=== PATIENT | male | born 1965 | race Caucasian/White ===

== ENCOUNTER 2018-05-07 01:50 | Emergency (ER) | payer OTHER, SELFPAY ==
--- NOTE | 2018-05-07 02:02 | ED.EXTPRO ---
HPI - Extremity Problem General Chief complaint: Skin/Abscess/Foreign Body Stated complaint: left elbow/forearm swelling redness Time Seen by Provider: 05/07/18 01:59 Source: patient Mode of arrival: ambulatory Limitations: no limitations History of Present Illness HPI Narrative: 53-year-old male here for evaluation redness around his left arm. Patient states that it started within the past 24 hr. He did have some dry skin around his elbow. He states that he did his elbow in the shower and then had it again on the window of his car several days ago. He has never had a abscess in his knee drained in the past. He did have some problems managing himself so earlier however he put some ice on it and that his improve the symptoms. No fevers. He has not tried anything but the ice prior to arrival. Related Data Previous Rx's Medication Instructions Recorded ondansetron [Zofran ODT] 4 mg SUBLINGUAL Q6HP PRN #10 odt 02/25/17 tamsulosin [Flomax] 0.4 mg PO QDAY #7 cap 02/25/17 cephalexin [Keflex] 500 mg PO QID 5 Days #20 cap 05/07/18 Allergies Allergy/AdvReac Type Severity Reaction Status Date / Time egg [EGG] Allergy Unknown Unverified 05/21/17 12:08 feathers [FEATHERS] Allergy Unknown Unverified 05/21/17 12:08 Influenza Virus Vaccines Allergy Unknown Unverified 05/21/17 12:08 [INFLUENZA VIRUS VACCINES] Review of Systems Constitutional Denies fever(s) Eyes Denies itchy eyes Musculoskeletal Denies myalgias and Denies arthralgias Integumentary/Breasts Comments: Redness around the left elbow dryness over the left elbow Neurologic Denies paresthesias Hematologic/Lymphatic Denies easy bleeding and Denies easy bruising Allergic/Immunologic Denies urticaria and Denies itchy eyes REPLACED BY [facility] Medical History BPH (benign prostatic hyperplasia) (Acute) Social History Smoking Status: Never smoker Social History Smoking Status: Never smoker Exam Initial Vital Signs Initial Vital Signs: Vital Signs Temperature 98.2 F 05/07/18 02:03 Pulse Rate 75 05/07/18 02:03 Respiratory Rate 18 05/07/18 02:03 Blood Pressure 178/105 H 05/07/18 02:03 Pulse Oximetry 98 05/07/18 02:03 Const General: cooperative, healthy appearing, comfortable, well developed, well groomed and No acute distress Orientation: alert, awake and oriented x3 HENMT Head: normal to inspection and normocephalic Resp Effort & Inspection: normal respiratory effort Cardio Rate: regular rate Skin Other: Redness on the elbow. Mostly distal to the elbow. Medial aspect. No blisters. No vesicles. Neuro General: alert and awake Sensory Exam: no sensory deficits noted Extrem Other: Full range of motion of the left shoulder left elbow and left wrist Psych Appearance: grossly normal and well kempt Course Orders Ordered: Discontinued Medications Cephalexin HCl (Keflex) 500 mg PO NOW ONE Stop: 05/07/18 02:11 Last Admin: 05/07/18 02:15 Dose: 500 mg Vital Signs - 8 hr 05/07/18 02:03 05/07/18 02:22 Temperature 98.2 F Pulse Rate 75 76 Respiratory Rate 18 18 Blood Pressure 178/105 H 150/104 H Pulse Oximetry 98 98 MDM - Extremity (Nontraumatic) MDM Narrative Medical decision making narrative: Nontoxic appearing. Does have redness around the left forearm and around the left elbow. Doubt septic joint. No abscesses that knee drained. Will send home with Keflex. Patient given 1st dose here in the ER. Given prescription. He is given return precautions. He expressed understanding and agreement with plan. Discharge Plan Departure Patient Disposition: Home Clinical Impression: Cellulitis Qualifiers: Site of cellulitis: extremity Site of cellulitis of extremity: upper extremity Laterality: left Qualified Code(s): L03.114 - Cellulitis of left upper limb Discharge Date/Time: 05/07/18 02:25 Interventions: ED Discharge Assessment Last Done: 05/07/18 02:22 Instructions: DI for Cellulitis -- Adult Activity Restrictions/Additional Instructions: Take the antibiotics as directed. Contact your primary doctor for a follow-up. Return to the emergency department for any new or worsening symptoms Prescriptions: New cephalexin [Keflex] 500 mg capsule 500 mg PO QID 5 Days Qty: 20 RF: 0 No Action tamsulosin [Flomax] 0.4 MG capsule,extended release 24hr 0.4 mg PO QDAY Qty: 7 RF: 0 ondansetron [Zofran ODT] 4 MG tablet,disintegrating 4 mg Sublingual Q6HP PRNQty: 10 RF: 0 Referrals: Shahriar Kraft CNP [Primary Care Provider] -
[2018-05-07 02:03] VITALS: BP 178/105; PULSE 75; RESP 18; TEMP 36.8; O2SAT 98; BMI 31.1
[2018-05-07] MEDS: cephALEXin 250 MG CAPSULE 500 MG PO (02:15)
[2018-05-07 02:22] VITALS: BP 150/104; PULSE 76; RESP 18; O2SAT 98
== END 2018-05-07 02:25 | disposition home or self-care (01) ==
PROVIDERS: Emergency Provider Emergency Medicine; Family Provider Registered Nurse Diabetes Educator; PCP Registered Nurse Diabetes Educator
DX: L03.114 Cellulitis of left upper limb (principal)
CPT/HCPCS: 99282; 99283

== ENCOUNTER 2020-04-02 17:19 | Observation (INO) | payer OTHER, SELFPAY ==
[2020-04-02] VITALS (14 sets, daily range): BP systolic 151–185; BP diastolic 82–107; PULSE 55–72; RESP 16–32; TEMP 36.3–37.1; O2SAT 95–99; BMI 28.3
--- NOTE | 2020-04-02 17:33 | DI.CT.S_ITS ---
PROCEDURE: CT STROKE INDICATIONS: Left facial droop TECHNIQUE: Noncontrast 4.5 mm thick angled axial sections acquired from the foramen magnum to the vertex, with coronal reformats. For radiation dose reduction, the following was used: automated exposure control, adjustment of mA and/or kV according to patient size. COMPARISON: None. FINDINGS: Image quality: Excellent. CSF spaces: Basal cisterns are patent. No extra-axial fluid collections. Ventricles are normal in size and shape. Brain: No midline shift. No intracranial masses or hemorrhage. Vaz-white matter interface is normal. Skull and face: Calvarium and visualized facial bones are intact, without suspicious lesions. Sinuses: Visualized sinuses and mastoids are clear. IMPRESSION: No acute intracranial hemorrhage is seen. No acute intracranial process is seen. Note: Case discussed by telephone with Dr. Alamo at 4:47 p.m. [place] time on April 02, 2020. This study fulfills neurological imaging criteria for inclusion or exclusion of acute stroke therapies based on available published neurological imaging guidelines. Dictated by: Rusty Crocker M.D. on 04/02/2020 at 16:46 Approved by: Rusty Corcker M.D. on 04/02/2020 at 16:47
--- NOTE | 2020-04-02 17:33 | DI.CT.S_ITS ---
PROCEDURE: CT ANGIO HEAD AND NECK INDICATIONS: Left facial droop TECHNIQUE: Noncontrast images were performed earlier in the day and not repeated. After the administration of intravenous contrast, 1 mm thick sections acquired from the aortic arch through the [place]. Post-contrast 4.5 mm thick sections then re-acquired from the foramen magnum to the vertex. 3-dimensional gycrcwg-yontaooxq-ibutpcobeg (MIP) and/or volume rendering reformats were acquired of the central intracranial vasculature and neck separately. COMPARISON: [facility], CT, CT STROKE, 04/02/2020, 17:35. FINDINGS: Image quality: Excellent. BRAIN: CSF spaces: Ventricles are normal in size and shape. Basal cisterns are patent. No extra-axial fluid collections. Brain: No midline shift. No intracranial bleeds or masses. Vaz-white matter interface appears intact. Skull and face: Calvarium and facial bones appear intact, without suspicious lesions. Orbits appear normal. Sinuses: Sinuses and mastoids are clear. HEAD CT ANGIOGRAPHY: Anterior circulation: Intracranial internal carotid arteries are normal in size and flow. The flow within the paired anterior cerebral arteries is normal and symmetric. The flow within the middle cerebral arteries is normal and symmetric. The anterior communicating artery is seen. No aneurysms are seen. Posterior circulation: The right vertebral artery largely terminates in the right posterior inferior cerebellar artery. The left vertebral artery is unremarkable. There is a normal appearing basilar artery. Flow within the posterior cerebral arteries is normal and symmetric. No aneurysms are seen. NECK CT ANGIOGRAPHY: Carotid system: The great vessels demonstrate a conventional anatomy as they arise from the aortic arch. The origins of the common carotid arteries appear patent. The common carotid arteries demonstrate normal caliber and courses. The bifurcation regions are both widely patent. The internal carotid arteries demonstrate normal calibers and courses. Posterior circulation: The origins of the vertebral arteries both appear widely patent. The more superior extracranial portions of both vertebral arteries also demonstrate normal courses and calibers. The left vertebral artery is dominant to the right Soft tissues: Visualized neck soft tissues demonstrate no suspicious abnormalities. Bones: No suspicious bony lesions. Visualized cervical spine appears normally aligned. Moderate cervical spine degenerative change can be seen. IMPRESSION: No acute intracranial process is seen. Within the arteries of the neck, no hemodynamically significant stenosis can be seen. Any quantitative measurements of stenosis were performed using NASCET criteria. Dictated by: Rusty Crocker M.D. on 04/02/2020 at 17:00 Approved by: Rusty Crocker M.D. on 04/02/2020 at 17:03
[2020-04-02 17:40] LABS: Add Manual Diff / Slide Review NO; Basophils Absolute Auto 100 /uL (0-100); Eosinophils Absolute Auto 300 /uL (0-450); Eosinophils Percent Auto 3.2 % (2-4); Hematocrit 46.7 % (41-53); Hemoglobin 16.5 g/dL (13.5-17.5); Lymphocytes Absolute Auto 3200 /uL (1100-4500); Lymphocytes Percent Auto 32.7 % (25-40); Mean Corpuscular HGB Conc 35.2 % (30-36); Mean Corpuscular Hemoglobin 31.3 PG (26-34); Mean Corpuscular Volume 88.8 fL (80-100); Monocytes Absolute Auto 700 /uL (0-900); Monocytes Percent Auto 7.5 % (3-14); Neutrophils Absolute Auto 5400 /uL (1500-7000); Neutrophils Percent Auto 55.6 % (50-75); Platelet Count 189 X10^3/uL (150-400); Red Blood Cell Count 5.26 X10^6/uL (4.5-5.9); Red Cell Distribution Width 13.8 % (11.6-14.8); White Blood Cell Count 9.7 X10^3/uL (4.5-11.0)
[2020-04-02 17:45] LABS: INR 1.1 (0.9-1.3); Prothrombin Time 12.8 SECONDS (10.1-12.7)
[2020-04-02 17:48] LABS: PTT Partial Thromboplastin Tim 33 SECONDS (26.4-36.2)
[2020-04-02 17:50] LABS: Albumin 4.4 g/dL (3.5-5.0); Albumin Globulin Ratio 1.3 (1.0-2.8); Alkaline Phosphatase 80 U/L (38-126); Aspartate Aminotransferase 38 IU/L (17-59); BUN Creatinine Ratio 16.8 (6-22); Bilirubin Total 0.9 mg/dL (0.2-1.3); Blood Urea Nitrogen 21 mg/dL (9-20); Calcium 9.4 mg/dL (8.4-10.2); Carbon Dioxide 28 mmol/L (22-32); Chloride 108 mmol/L (98-107); Creatine Kinase 200 U/L (55-170); Globulin 3.5 g/dL (1.7-4.1); Glucose 111 mg/dL (70-100); HEMOLYSIS < 15 (0-50); Potassium 3.9 mmol/L (3.4-5.1); Sodium 140 mmol/L (137-145); Total Protein 7.9 g/dL (6.3-8.2)
[2020-04-02 17:51] LABS: Alanine Aminotransferase < 4 IU/L (<50)
[2020-04-02] MEDS: SODIUM CHLORIDE 0.9% 500 ML 1000 ML IV (17:52)
[2020-04-02 18:01] LABS: Troponin I < 0.012 ng/mL (0.01-0.034)
[2020-04-02 18:05] LABS: CKMB % Relative Index 0.9 % (1.5-5.0); Creatine Kinase MB 1.88 ng/mL (<2.37)
--- NOTE | 2020-04-02 18:13 | ED_ITS ---
HPI - Neuro Symptoms/Deficit <Wilson Alamo MD - Last Filed: 04/11/20 07:37> General Chief Complaint: Neuro Symptoms/Deficit Stated Complaint: Left Eye Issues, Neck Pain, Right Side Mouth Swell Time Seen by Provider: 04/02/20 17:32 Source: patient Mode of arrival: Ambulatory History of Present Illness HPI Narrative: Patient awoke Friday morning, 2 days ago with left facial droop. No limb weakness or numbness. No altered mental status. Patient states has had bouts of confusion since January with starting his new job. Patient states that job requires a lot of concentration. Patient denies any recent illness. At times he does have discomfort in the left arm but not weakness. On Anticoagulants: No Related Data Home Medications Medication Instructions Recorded Confirmed acetaminophen 1,000 mg PO Q6H PRN 04/02/20 04/02/20 ibuprofen 200 mg PO Q6H PRN 04/02/20 04/02/20 Previous Rx's Medication Instructions Recorded aspirin 81 mg PO DAILY #30 tab 04/03/20 atorvastatin 20 mg PO DAILY #30 tab 04/03/20 losartan 25 mg PO DAILY #30 tab 04/03/20 valacyclovir 1,000 mg PO TID #6 tab 04/03/20 Allergies Allergy/AdvReac Type Severity Reaction Status Date / Time egg [EGG] Allergy Unknown Anaphylaxis Verified 04/02/20 22:33 feathers [FEATHERS] Allergy Unknown Difficulty Verified 04/02/20 22:33 Breathing Influenza Virus Vaccines Allergy Unknown Anaphylaxis Verified 04/02/20 22:33 [INFLUENZA VIRUS VACCINES] Review of Systems <Wilson Alamo MD - Last Filed: 04/11/20 07:37> Review of Systems Narrative: GENERAL: Denies chills, fatigue, malaise, fever, sweats. HEENT: Denies sinus pain, ear pain, sore throat RESPIRATORY: Denies dyspnea, cough CARDIOVASCULAR: Denies chest pain, palpitations GASTROINTESTINAL: Denies nausea, vomiting, abdominal pain : Denies dysuria, frequency, hematuria MUSCULOSKELETAL: denies muscle or bony pain SKIN: Denies rash, skin lesions NEUROLOGIC: Complains of numbness and weakness of the face. No headache ROS Unobtainable: All systems reviewed & are unremarkable except as noted in HPI and below Hematologic/Lymphatic On Anticoagulants: No Patient History <Wilson Alamo MD - Last Filed: 04/11/20 07:37> Medical History Bilateral kidney stones Hyperlipidemia Hypertension Surgical History History of appendectomy History of lithotripsy History of surgery on arm Family History Father Cancer Stroke Sister Diabetes mellitus Mother Cardiovascular disease History of four vessel coronary artery bypass graft Social History household members: spouse Smoking Status: Never smoker alcohol intake: current Smoking Status: Never smoker alcohol intake frequency: holidays/special occasions only Substance Use Type: does not use Exam <Wilson Alamo MD - Last Filed: 04/11/20 07:37> Narrative Exam Narrative: GENERAL: in no distress, not toxic not dyspneic HEAD: Normocephalic. EYES: Pupils equal round No scleral icterus. No injection no discharge ENT: Mucous membranes moist. NECK: Trachea midline. CARDIOVASCULAR: Regular rate and rhythm without murmurs RESPIRATORY: Clear to auscultation. Breath sounds equal bilaterally. No wheezes, rales, or rhonchi. GASTROINTESTINAL: Abdomen soft, non-tender EXTREMITIES: No gross deformities. BACK: No flank tenderness. NEURO: AOx4. Slight slurred speech. There is a left facial droop with slight sparing of the left forehead. Strong equal order picker. Negative pronator drift. Light touch intact to right face but slightly diminished on the left, otherwise light touch intact to bilateral hands. Steady self gait in the room, no ataxia, no footdrop SKIN: Warm and dry PSYCH: Not anxious, is cooperative Initial Vital Signs Initial Vital Signs: Vital Signs Temperature 98.7 F 04/02/20 17:27 Pulse Rate 66 04/02/20 17:27 Respiratory Rate 18 04/02/20 17:27 Blood Pressure 185/101 H 04/02/20 17:27 Pulse Oximetry 99 04/02/20 17:27 <Anne-Marie Delaney DO - Last Filed: 04/02/20 21:35> Initial Vital Signs Initial Vital Signs: Vital Signs Temperature 98.7 F 04/02/20 17:27 Pulse Rate 66 04/02/20 17:27 Respiratory Rate 18 04/02/20 17:27 Blood Pressure 185/101 H 04/02/20 17:27 Pulse Oximetry 99 04/02/20 17:27 Scores <Wilson Alamo MD - Last Filed: 04/11/20 07:37> NIH Stroke Scale Level of Conciousness: Alert, keenly responsive Ask month/age: Answers both questions correctly. Open/close eyes, close hand: Performs both tasks correctly Best gaze horizontal: Normal Visual mahoney: No visual loss Facial palsy: Complete paralysis, absence of movement in the upper and lower face Left arm drift: No drift for full 10 sec Right arm drift: No drift for full 10 sec Left leg drift: No drift for full 5 sec Right leg drift: No drift for full 5 sec Limb ataxia: Absent Sensory on face/arms/legs: Normal, no sensory loss Best language: No aphasia, normal Dysarthria: Normal Extinction or inattention: No abnormality Total NIH Stroke scale score: 3 Course <Wilson Alamo MD - Last Filed: 04/11/20 07:37> Course Course Narrative: No new issues during course of stay Decision to Admit Date: 04/02/20 Decision to Admit time: 18:31 Orders Ordered: Discontinued Medications Acetaminophen (Acetaminophen 325 Mg Tablet) 650 mg PO Q4HR PRN PRN Reason: Fever/Mild Pain (1-3) Last Admin: 04/03/20 09:46 Dose: 650 mg Documented by: Admin: 04/02/20 21:14 Dose: 650 mg Documented by: LILIANA Acetaminophen (Acetaminophen Susp 650 Mg/20.3 Ml Udc) 1,000 mg PO Q8H PRN PRN Reason: Headache Artificial Tears (Mineral Oil/Petrol Ophth Oint 3.5 Gm) 1 applic EYE-LEFT BID WILMAR Last Admin: 04/03/20 00:50 Dose: Not Given Documented by: ADRIA Artificial Tears (Mineral Oil/Petrol Ophth Oint 3.5 Gm) 1 applic EYE-LEFT BEDTIME WILMAR Artificial Tears (Mineral Oil/Petrol Ophth Oint 3.5 Gm) 1 applic EYE-LEFT PRN PRN PRN Reason: Dry Eye(s) Artificial Tears (Polyvinyl Alcohol Drops) 1 drops EYE-LEFT PRN PRN PRN Reason: Dry Eye(s) Last Admin: 04/03/20 10:31 Dose: 1 drop Documented by: [email or web address] Aspirin (Aspirin 81 Mg Chew Tab) 324 mg PO NOW ONE Stop: 04/02/20 18:28 Last Admin: 04/02/20 18:38 Dose: 324 mg Documented by: JULISSA Aspirin (Aspirin Ec 81 Mg Tablet) 81 mg PO DAILY [facility] Last Admin: 04/03/20 09:33 Dose: 81 mg Documented by: [email or web address] Atorvastatin Calcium (Atorvastatin 20 Mg Tablet) 40 mg PO BEDTIME [facility] Last Admin: 04/02/20 22:34 Dose: 40 mg Documented by: LILIANA Clopidogrel Bisulfate (Clopidogrel 75 Mg Tablet) 75 mg PO NOW ONE Stop: 04/02/20 18:28 Last Admin: 04/02/20 18:38 Dose: 75 mg Documented by: JULISSA Clopidogrel Bisulfate (Clopidogrel 75 Mg Tablet) 75 mg PO DAILY [facility] Last Admin: 04/03/20 09:33 Dose: 75 mg Documented by: [email or web address] Enoxaparin Sodium (Enoxaparin 40 Mg/0.4 Ml Syringe) 40 mg SUBCUT DAILY [facility] Last Admin: 04/03/20 09:35 Dose: 40 mg Documented by: ETHN Hydralazine HCl (Hydralazine 20 Mg/Ml Vial) 10 mg IV Q6HR PRN PRN Reason: Hypertension Sodium Chloride (Normal Saline 0.9%) 500 mls @ 1,000 mls/hr IV BOLUS ONE Stop: 04/02/20 18:03 Last Infusion: 04/02/20 18:33 Dose: 0 mls/hr Documented by: Admin: 04/02/20 17:52 Dose: 1,000 mls/hr Documented by: BARRINGTON Losartan Potassium (Losartan 25 Mg Tablet) 25 mg PO NOW ONE Stop: 04/02/20 23:16 Last Admin: 04/03/20 00:48 Dose: 25 mg Documented by: ADRIA Losartan Potassium (Losartan 25 Mg Tablet) 25 mg PO DAILY [facility] Last Admin: 04/03/20 09:35 Dose: 25 mg Documented by: [email or web address] Naloxone HCl (Naloxone 0.4 Mg/Ml Vial) 0.2 mg IV Q2MIN PRN PRN Reason: Opiate Reversal Ondansetron HCl (Ondansetron 4 Mg/2 Ml Inj) 4 mg IV Q8HR PRN PRN Reason: Nausea And Vomiting Oxycodone HCl (Oxycodone 5 Mg/5 Ml Oral Solution) 5 mg PO Q4HR PRN PRN Reason: Pain, Moderate (4-6) Oxycodone HCl (Oxycodone 5 Mg/5 Ml Oral Solution) 10 mg PO Q4HR PRN PRN Reason: Pain, Moderate (4-6) Oxycodone HCl (Oxycodone Ir 5 Mg Tablet) 5 mg PO Q4HR PRN PRN Reason: Pain, Moderate (4-6) Last Admin: 04/03/20 09:46 Dose: 5 mg Documented by: Admin: 04/03/20 03:50 Dose: 5 mg Documented by: Admin: 04/02/20 22:34 Dose: 5 mg Documented by: LILIANA Oxycodone HCl (Oxycodone Ir 5 Mg Tablet) 10 mg PO Q4HR PRN PRN Reason: Pain, Severe (7-10) Prednisone (Prednisone 20 Mg Tablet) 60 mg PO DAILY [facility] Stop: 04/10/20 00:00 Last Admin: 04/03/20 10:31 Dose: 60 mg Documented by: REYNALDO Proparacaine HCl (Proparacaine 0.5% Ophth Stacy) 1 drops EYE-LEFT NOW ONE Stop: 04/02/20 21:53 Last Admin: 04/02/20 22:35 Dose: 1 drop Documented by: LILIANA Rosuvastatin Calcium (Rosuvastatin 10 Mg Tablet) 10 mg PO BEDTIME [facility] Last Admin: 04/02/20 21:12 Dose: Not Given Documented by: LILIANA Sodium Chloride (Sodium Chloride 0.9% Flush) 10 ml IV PRN PRN PRN Reason: Flush Valacyclovir HCl (Valacyclovir 500 Mg Tablet) 1,000 mg PO TID [facility] Stop: 04/10/20 09:59 Last Admin: 04/03/20 10:31 Dose: 1,000 mg Documented by: REYNALDO Reevaluation(s) Reevaluation #1: Reviewed results with patient. Understands possible stroke likely. Will need to stay for further testing and MRI Time: 18:31 Consultations Consultation #1: Spoke with Dr. Solis, [facility] stroke team. Recommends patient aspirin 324 as well as Plavix 75 mg. Patient to be admitted for MRI Time: 18:31 Consultation #2: Spoke with hospitalist dr zamorano, he will have shift stacker provider at 7:00 p.m. admit patient Time: 18:32 Additional Consultation(s): 1831 s/o dr delaney, will need to contact hospitalist for admit Vital Signs Vital signs: Vital Signs - 8 hr 04/02/20 17:27 04/02/20 17:29 04/02/20 17:30 Temperature 98.7 F Pulse Rate 66 69 66 Respiratory Rate 18 Blood Pressure 185/101 H Pulse Oximetry 99 97 98 04/02/20 17:31 04/02/20 17:56 04/02/20 18:00 Temperature Pulse Rate 66 63 65 Respiratory Rate 24 19 27 H Blood Pressure 185/101 H 168/95 H Pulse Oximetry 97 97 97 04/02/20 18:30 04/02/20 19:00 04/02/20 19:30 Temperature Pulse Rate 55 L 56 L 63 Respiratory Rate 18 18 20 Blood Pressure Pulse Oximetry 97 96 97 04/02/20 19:37 Temperature Pulse Rate 62 Respiratory Rate 32 H Blood Pressure 174/101 H Pulse Oximetry 95 <Anne-Marie Delaney, DO - Last Filed: 04/02/20 21:35> Orders Ordered: Discontinued Medications Acetaminophen (Acetaminophen 325 Mg Tablet) 650 mg PO Q4HR PRN PRN Reason: Fever/Mild Pain (1-3) Last Admin: 04/03/20 09:46 Dose: 650 mg Documented by: Admin: 04/02/20 21:14 Dose: 650 mg Documented by: LILIANA Acetaminophen (Acetaminophen Susp 650 Mg/20.3 Ml Udc) 1,000 mg PO Q8H PRN PRN Reason: Headache Artificial Tears (Mineral Oil/Petrol Ophth Oint 3.5 Gm) 1 applic EYE-LEFT BID WILAMR Last Admin: 04/03/20 00:50 Dose: Not Given Documented by: ADRIA Artificial Tears (Mineral Oil/Petrol Ophth Oint 3.5 Gm) 1 applic EYE-LEFT BEDTIME WILMAR Artificial Tears (Mineral Oil/Petrol Ophth Oint 3.5 Gm) 1 applic EYE-LEFT PRN PRN PRN Reason: Dry Eye(s) Artificial Tears (Polyvinyl Alcohol Drops) 1 drops EYE-LEFT PRN PRN PRN Reason: Dry Eye(s) Last Admin: 04/03/20 10:31 Dose: 1 drop Documented by: [email or web address] Aspirin (Aspirin 81 Mg Chew Tab) 324 mg PO NOW ONE Stop: 04/02/20 18:28 Last Admin: 04/02/20 18:38 Dose: 324 mg Documented by: JULISSA Aspirin (Aspirin Ec 81 Mg Tablet) 81 mg PO DAILY [facility] Last Admin: 04/03/20 09:33 Dose: 81 mg Documented by: [email or web address] Atorvastatin Calcium (Atorvastatin 20 Mg Tablet) 40 mg PO BEDTIME [facility] Last Admin: 04/02/20 22:34 Dose: 40 mg Documented by: LILIANA Clopidogrel Bisulfate (Clopidogrel 75 Mg Tablet) 75 mg PO NOW ONE Stop: 04/02/20 18:28 Last Admin: 04/02/20 18:38 Dose: 75 mg Documented by: JULISSA Clopidogrel Bisulfate (Clopidogrel 75 Mg Tablet) 75 mg PO DAILY [facility] Last Admin: 04/03/20 09:33 Dose: 75 mg Documented by: [email or web address] Enoxaparin Sodium (Enoxaparin 40 Mg/0.4 Ml Syringe) 40 mg SUBCUT DAILY [facility] Last Admin: 04/03/20 09:35 Dose: 40 mg Documented by: [email or web address] Hydralazine HCl (Hydralazine 20 Mg/Ml Vial) 10 mg IV Q6HR PRN PRN Reason: Hypertension Sodium Chloride (Normal Saline 0.9%) 500 mls @ 1,000 mls/hr IV BOLUS ONE Stop: 04/02/20 18:03 Last Infusion: 04/02/20 18:33 Dose: 0 mls/hr Documented by: Admin: 04/02/20 17:52 Dose: 1,000 mls/hr Documented by: BARRINGTON Losartan Potassium (Losartan 25 Mg Tablet) 25 mg PO NOW ONE Stop: 04/02/20 23:16 Last Admin: 04/03/20 00:48 Dose: 25 mg Documented by: ADRIA Losartan Potassium (Losartan 25 Mg Tablet) 25 mg PO DAILY [facility] Last Admin: 04/03/20 09:35 Dose: 25 mg Documented by: [email or web address] Naloxone HCl (Naloxone 0.4 Mg/Ml Vial) 0.2 mg IV Q2MIN PRN PRN Reason: Opiate Reversal Ondansetron HCl (Ondansetron 4 Mg/2 Ml Inj) 4 mg IV Q8HR PRN PRN Reason: Nausea And Vomiting Oxycodone HCl (Oxycodone 5 Mg/5 Ml Oral Solution) 5 mg PO Q4HR PRN PRN Reason: Pain, Moderate (4-6) Oxycodone HCl (Oxycodone 5 Mg/5 Ml Oral Solution) 10 mg PO Q4HR PRN PRN Reason: Pain, Moderate (4-6) Oxycodone HCl (Oxycodone Ir 5 Mg Tablet) 5 mg PO Q4HR PRN PRN Reason: Pain, Moderate (4-6) Last Admin: 04/03/20 09:46 Dose: 5 mg Documented by: Admin: 04/03/20 03:50 Dose: 5 mg Documented by: Admin: 04/02/20 22:34 Dose: 5 mg Documented by: LILIANA Oxycodone HCl (Oxycodone Ir 5 Mg Tablet) 10 mg PO Q4HR PRN PRN Reason: Pain, Severe (7-10) Prednisone (Prednisone 20 Mg Tablet) 60 mg PO DAILY [facility] Stop: 04/10/20 00:00 Last Admin: 04/03/20 10:31 Dose: 60 mg Documented by: REYNALDO Proparacaine HCl (Proparacaine 0.5% Ophth Stacy) 1 drops EYE-LEFT NOW ONE Stop: 04/02/20 21:53 Last Admin: 04/02/20 22:35 Dose: 1 drop Documented by: LILIANA Rosuvastatin Calcium (Rosuvastatin 10 Mg Tablet) 10 mg PO BEDTIME [facility] Last Admin: 04/02/20 21:12 Dose: Not Given Documented by: LILIANA Sodium Chloride (Sodium Chloride 0.9% Flush) 10 ml IV PRN PRN PRN Reason: Flush Valacyclovir HCl (Valacyclovir 500 Mg Tablet) 1,000 mg PO TID [facility] Stop: 04/10/20 09:59 Last Admin: 04/03/20 10:31 Dose: 1,000 mg Documented by: REYNALDO Consultations Consultation #1: Spoke with Elliott Merritt GRAINING OPERATOR accepts for observation. Vital Signs Vital signs: Vital Signs - 8 hr 04/02/20 17:27 04/02/20 17:29 04/02/20 17:30 Temperature 98.7 F Pulse Rate 66 69 66 Respiratory Rate 18 Blood Pressure 185/101 H Pulse Oximetry 99 97 98 04/02/20 17:31 04/02/20 17:56 04/02/20 18:00 Temperature Pulse Rate 66 63 65 Respiratory Rate 24 19 27 H Blood Pressure 185/101 H 168/95 H Pulse Oximetry 97 97 97 04/02/20 18:30 04/02/20 19:00 04/02/20 19:30 Temperature Pulse Rate 55 L 56 L 63 Respiratory Rate 18 18 20 Blood Pressure Pulse Oximetry 97 96 97 04/02/20 19:37 Temperature Pulse Rate 62 Respiratory Rate 32 H Blood Pressure 174/101 H Pulse Oximetry 95 MDM - Neuro Symptoms/Deficit <Wilson Alamo MD - Last Filed: 04/11/20 07:37> Differential Diagnosis Differential diagnosis: Likely cerebrovascular accident, transient cerebral ischemia and other (Graves's palsy) Lab Data Attestation: I reviewed the patient's lab results. Result diagrams: 04/02/20 17:30 04/03/20 05:19 Labs: Lab Results 04/02/20 04/02/20 04/02/20 Range/Units 17:30 17:30 17:30 WBC 9.7 (4.5-11.0) X10^3/uL RBC 5.26 (4.5-5.9) X10^6/uL Hgb 16.5 (13.5-17.5) g/dL Hct 46.7 (41-53) % MCV 88.8 (80-100) fL MCH 31.3 (26-34) PG MCHC 35.2 (30-36) % RDW 13.8 (11.6-14.8) % Plt Count 189 (150-400) X10^3/uL Neut % (Auto) 55.6 (50-75) % Lymph % (Auto) 32.7 (25-40) % [place] % (Auto) 7.5 (3-14) % Eos % (Auto) 3.2 (2-4) % Baso % (Auto) 1.0 (0-2) % Neut # (Auto) 5400 (9651-4844) /uL Lymph # (Auto) 3200 (6677-1696) /uL [place] # (Auto) 700 (0-900) /uL Eos # (Auto) 300 (0-450) /uL Baso # (Auto) 100 (0-100) /uL PT 12.8 H (10.1-12.7) SECONDS INR 1.1 (0.9-1.3) APTT 33 (26.4-36.2) SECONDS Sodium 140 (137-145) mmol/L Potassium 3.9 (3.4-5.1) mmol/L Chloride 108 H (98-107) mmol/L Carbon Dioxide 28 (22-32) mmol/L BUN 21 H (9-20) mg/dL Creatinine 1.25 (0.66-1.25) mg/dL Estimated GFR 60.0 (>60) mL/min BUN/Creatinine Ratio 16.8 (6-22) Glucose 111 H (70-100) mg/dL Calcium 9.4 (8.4-10.2) mg/dL Total Bilirubin 0.9 (0.2-1.3) mg/dL AST 38 (17-59) IU/L ALT < 4 (<50) IU/L Alkaline Phosphatase 80 (38-126) U/L Total Creatine Kinase 200 H (55-170) U/L CK-MB (CK-2) 1.88 (<2.37) ng/mL CK-MB (CK-2) Rel Index 0.9 L (1.5-5.0) % Troponin I < 0.012 (0.01-0.034) ng/mL Total Protein 7.9 (6.3-8.2) g/dL Albumin 4.4 (3.5-5.0) g/dL Globulin 3.5 (1.7-4.1) g/dL Albumin/Globulin Ratio 1.3 (1.0-2.8) U Opiates 300ng/mL cut (Negative) Ur Oxycodone Screen (Negative) Urine Methadone Screen (Negative) Ur Barbiturates Screen (Negative) U Tricyclic Antidepress (Negative) Ur Phencyclidine Scrn (Negative) Ur Amphetamines Screen (Negative) U Methamphetamines Scrn (Negative) Ur MDMA Scrn (Ecstasy) (Negative) U Benzodiazepines Scrn (Negative) Urine Cocaine Screen (Negative) U Marijuana (THC) Screen (Negative) SARS-CoV-2 (PCR) (Negative) 04/02/20 04/02/20 Range/Units 18:04 18:34 WBC (4.5-11.0) X10^3/uL RBC (4.5-5.9) X10^6/uL Hgb (13.5-17.5) g/dL Hct (41-53) % MCV (80-100) fL MCH (26-34) PG MCHC (30-36) % RDW (11.6-14.8) % Plt Count (150-400) X10^3/uL Neut % (Auto) (50-75) % Lymph % (Auto) (25-40) % [place] % (Auto) (3-14) % Eos % (Auto) (2-4) % Baso % (Auto) (0-2) % Neut # (Auto) (8999-1976) /uL Lymph # (Auto) (9986-3375) /uL [place] # (Auto) (0-900) /uL Eos # (Auto) (0-450) /uL Baso # (Auto) (0-100) /uL PT (10.1-12.7) SECONDS INR (0.9-1.3) APTT (26.4-36.2) SECONDS Sodium (137-145) mmol/L Potassium (3.4-5.1) mmol/L Chloride (98-107) mmol/L Carbon Dioxide (22-32) mmol/L BUN (9-20) mg/dL Creatinine (0.66-1.25) mg/dL Estimated GFR (>60) mL/min BUN/Creatinine Ratio (6-22) Glucose (70-100) mg/dL Calcium (8.4-10.2) mg/dL Total Bilirubin (0.2-1.3) mg/dL AST (17-59) IU/L ALT (<50) IU/L Alkaline Phosphatase (38-126) U/L Total Creatine Kinase (55-170) U/L CK-MB (CK-2) (<2.37) ng/mL CK-MB (CK-2) Rel Index (1.5-5.0) % Troponin I (0.01-0.034) ng/mL Total Protein (6.3-8.2) g/dL Albumin (3.5-5.0) g/dL Globulin (1.7-4.1) g/dL Albumin/Globulin Ratio (1.0-2.8) U Opiates 300ng/mL cut Negative (Negative) Ur Oxycodone Screen Negative (Negative) Urine Methadone Screen Negative (Negative) Ur Barbiturates Screen Negative (Negative) U Tricyclic Antidepress Negative (Negative) Ur Phencyclidine Scrn Negative (Negative) Ur Amphetamines Screen Negative (Negative) U Methamphetamines Scrn Negative (Negative) Ur MDMA Scrn (Ecstasy) Negative (Negative) U Benzodiazepines Scrn Negative (Negative) Urine Cocaine Screen Negative (Negative) U Marijuana (THC) Screen Negative (Negative) SARS-CoV-2 (PCR) Negative (Negative) Point of Care Testing Glucose POC [address] scan - head: Radiologist's Impression: [address] [id number] Scan ReportSigned Patient: Doug Hare GMR#: [id number]: 1965Acct:[id number]/Sex: 54 / MDate of Service: 04/02/20Loc: EDAccession Number: [id number] Procedure: CT Stroke Ordering Provider: Wilson Alamo MD PROCEDURE: CT STROKE INDICATIONS: Left facial droop TECHNIQUE: Noncontrast 4.5 mm thick angled axial sections acquired from the foramen magnum to the vertex, with coronal reformats. For radiation dose reduction, the following was used: automated exposure control, adjustment of mA and/or kV according to patient size. COMPARISON: None. FINDINGS: Image quality: Excellent. CSF spaces: Basal cisterns are patent. No extra-axial fluid collections. Ventricles are normal in size and shape. Brain: No midline shift. No intracranial masses or hemorrhage. Vaz-white matter interface is normal. Skull and face: Calvarium and visualized facial bones are intact, without suspicious lesions. Sinuses: Visualized sinuses and mastoids are clear. IMPRESSION: No acute intracranial hemorrhage is seen. No acute intracranial process is seen. Note: Case discussed by telephone with Dr. Alamo at 4:47 p.m. [place] time on April 02, 2020. This study fulfills neurological imaging criteria for inclusion or exclusion of acute stroke therapies based on available published neurological imaging guidelines. Dictated by: Rusty Crocker M.D. on 04/02/2020 at 16:46 Approved by: Rusty Crocker M.D. on 04/02/2020 at 16:47 CTA - brain/neck: Radiologist's Impression: [address] [id number] Scan ReportSigned Patient: Doug Hare GMR#: [id number]: 1965Acct:[id number]/Sex: 54 / MDate of Service: 04/02/20Loc: EDAccession Number: [id number] Procedure: CT angio head and neck Ordering Provider: Wilson Alamo MD PROCEDURE: CT ANGIO HEAD AND NECK INDICATIONS: Left facial droop TECHNIQUE: Noncontrast images were performed earlier in the day and not repeated. After the administration of intravenous contrast, 1 mm thick sections acquired from the aortic arch through the [place]. Post-contrast 4.5 mm thick sections then re- acquired from the foramen magnum to the vertex. 3-dimensional anmmrkh-rrfixcsbi-jeylcketbi (MIP) and/or volume rendering reformats were acquired of the central intracranial vas culature and neck separately. COMPARISON: [facility], CT, CT STROKE, 04/02/2020, 17:35. FINDINGS: Image quality: Excellent. BRAIN: CSF spaces: Ventricles are normal in size and shape. Basal cisterns are patent. No extra-axial fluid collections. Brain: No midline shift. No intracranial bleeds or masses. Vaz-white matter interface appears intact. Skull and face: Calvarium and facial bones appear intact, without suspicious lesions. Orbits appear normal. Sinuses: Sinuses and mastoids are clear. HEAD CT ANGIOGRAPHY: Anterior circulation: Intracranial internal carotid arteries are normal in size and flow. The flow within the paired anterior cerebral arteries is normal and symmetric. The flow within the middle cerebral arteries is normal and symmetric. The anterior communicating artery is seen. No aneurysms are seen. Posterior circulation: The right vertebral artery largely terminates in the right posterior inferior cerebellar artery. The left vertebral artery is unremarkable. There is a normal appearing basilar artery. Flow within the posterior cerebral arteries is normal and symmetric. No aneurysms are seen. NECK CT ANGIOGRAPHY: Carotid system: The great vessels demonstrate a conventional anatomy as they arise from the aortic arch. The origins of the common carotid arteries appear patent. The common carotid arteries demonstrate normal caliber and courses. The bifurcation regions are both widely patent. The internal carotid arteries demonstrate normal calibers and courses. Posterior circulation: The origins of the vertebral arteries both appear widely patent. The more superior extracranial portions of both vertebral arteries also demonstrate normal courses and calibers. The left vertebral artery is dominant to the right Soft tissues: Visualized neck soft tissues demonstrate no suspicious abnormalities. Bones: No suspicious bony lesions. Visualized cervical spine appears normally aligned. Moderate cervical spine degenerative change can be seen. IMPRESSION: No acute intracranial process is seen. Within the arteries of the neck, no hemodynamically significant stenosis can be seen. Any quantitative measurements of stenosis were performed using NASCET criteria. Dictated by: Rusty Crocker M.D. on 04/02/2020 at 17:00 Approved by: Rusty Crocker M.D. on 04/02/2020 at 17:03 ECG Data Attestation: I personally reviewed and interpreted this ECG as follows: Interpretation: Normal sinus rhythm rate [address] elevation or depression Stroke Core Measures Exclusion Criteria TPA in CVA: Symptom Onset >3 or 4.5 Hours <Anne-Marie Delaney DO - Last Filed: 04/02/20 21:35> Lab Data Attestation: I reviewed the patient's lab results. Labs: Lab Results 04/02/20 04/02/20 04/02/20 Range/Units 17:30 17:30 17:30 WBC 9.7 (4.5-11.0) X10^3/uL RBC 5.26 (4.5-5.9) X10^6/uL Hgb 16.5 (13.5-17.5) g/dL Hct 46.7 (41-53) % MCV 88.8 (80-100) fL MCH 31.3 (26-34) PG MCHC 35.2 (30-36) % RDW 13.8 (11.6-14.8) % Plt Count 189 (150-400) X10^3/uL Neut % (Auto) 55.6 (50-75) % Lymph % (Auto) 32.7 (25-40) % [place] % (Auto) 7.5 (3-14) % Eos % (Auto) 3.2 (2-4) % Baso % (Auto) 1.0 (0-2) % Neut # (Auto) 5400 (3519-4636) /uL Lymph # (Auto) 3200 (1397-7450) /uL [place] # (Auto) 700 (0-900) /uL Eos # (Auto) 300 (0-450) /uL Baso # (Auto) 100 (0-100) /uL PT 12.8 H (10.1-12.7) SECONDS INR 1.1 (0.9-1.3) APTT 33 (26.4-36.2) SECONDS Sodium 140 (137-145) mmol/L Potassium 3.9 (3.4-5.1) mmol/L Chloride 108 H (98-107) mmol/L Carbon Dioxide 28 (22-32) mmol/L BUN 21 H (9-20) mg/dL Creatinine 1.25 (0.66-1.25) mg/dL Estimated GFR 60.0 (>60) mL/min BUN/Creatinine Ratio 16.8 (6-22) Glucose 111 H (70-100) mg/dL Calcium 9.4 (8.4-10.2) mg/dL Total Bilirubin 0.9 (0.2-1.3) mg/dL AST 38 (17-59) IU/L ALT < 4 (<50) IU/L Alkaline Phosphatase 80 (38-126) U/L Total Creatine Kinase 200 H (55-170) U/L CK-MB (CK-2) 1.88 (<2.37) ng/mL CK-MB (CK-2) Rel Index 0.9 L (1.5-5.0) % Troponin I < 0.012 (0.01-0.034) ng/mL Total Protein 7.9 (6.3-8.2) g/dL Albumin 4.4 (3.5-5.0) g/dL Globulin 3.5 (1.7-4.1) g/dL Albumin/Globulin Ratio 1.3 (1.0-2.8) U Opiates 300ng/mL cut (Negative) Ur Oxycodone Screen (Negative) Urine Methadone Screen (Negative) Ur Barbiturates Screen (Negative) U Tricyclic Antidepress (Negative) Ur Phencyclidine Scrn (Negative) Ur Amphetamines Screen (Negative) U Methamphetamines Scrn (Negative) Ur MDMA Scrn (Ecstasy) (Negative) U Benzodiazepines Scrn (Negative) Urine Cocaine Screen (Negative) U Marijuana (THC) Screen (Negative) SARS-CoV-2 (PCR) (Negative) 04/02/20 04/02/20 Range/Units 18:04 18:34 WBC (4.5-11.0) X10^3/uL RBC (4.5-5.9) X10^6/uL Hgb (13.5-17.5) g/dL Hct (41-53) % MCV (80-100) fL MCH (26-34) PG MCHC (30-36) % RDW (11.6-14.8) % Plt Count (150-400) X10^3/uL Neut % (Auto) (50-75) % Lymph % (Auto) (25-40) % [place] % (Auto) (3-14) % Eos % (Auto) (2-4) % Baso % (Auto) (0-2) % Neut # (Auto) (6706-9120) /uL Lymph # (Auto) (7308-2397) /uL [place] # (Auto) (0-900) /uL Eos # (Auto) (0-450) /uL Baso # (Auto) (0-100) /uL PT (10.1-12.7) SECONDS INR (0.9-1.3) APTT (26.4-36.2) SECONDS Sodium (137-145) mmol/L Potassium (3.4-5.1) mmol/L Chloride (98-107) mmol/L Carbon Dioxide (22-32) mmol/L BUN (9-20) mg/dL Creatinine (0.66-1.25) mg/dL Estimated GFR (>60) mL/min BUN/Creatinine Ratio (6-22) Glucose (70-100) mg/dL Calcium (8.4-10.2) mg/dL Total Bilirubin (0.2-1.3) mg/dL AST (17-59) IU/L ALT (<50) IU/L Alkaline Phosphatase (38-126) U/L Total Creatine Kinase (55-170) U/L CK-MB (CK-2) (<2.37) ng/mL CK-MB (CK-2) Rel Index (1.5-5.0) % Troponin I (0.01-0.034) ng/mL Total Protein (6.3-8.2) g/dL Albumin (3.5-5.0) g/dL Globulin (1.7-4.1) g/dL Albumin/Globulin Ratio (1.0-2.8) U Opiates 300ng/mL cut Negative (Negative) Ur Oxycodone Screen Negative (Negative) Urine Methadone Screen Negative (Negative) Ur Barbiturates Screen Negative (Negative) U Tricyclic Antidepress Negative (Negative) Ur Phencyclidine Scrn Negative (Negative) Ur Amphetamines Screen Negative (Negative) U Methamphetamines Scrn Negative (Negative) Ur MDMA Scrn (Ecstasy) Negative (Negative) U Benzodiazepines Scrn Negative (Negative) Urine Cocaine Screen Negative (Negative) U Marijuana (THC) Screen Negative (Negative) SARS-CoV-2 (PCR) Negative (Negative) Point of Care Testing Glucose POC 97 MDM Narrative Medical decision making narrative: Patient signed out to myself by Dr. Alamo while awaiting call back from hospitalist. Patient had developed neurologic symptoms on Friday and is far outside the window for tPA or even code IR. This was discussed with Neurology. Recommendations included aspirin, Plavix as well as MRI in the and typical workup for stroke. Patient has an NIH 3 with some left-sided facial droop, possible left extremity weakness and some issues with balance and stumbling. Patient's blood pressure has been elevated the department but no other acute changes were appreciated on imaging or lab work that are emergent. Discussed with the hospitalist they state that they will take over for blood pressure control do not ask for anything to be ordered or started at this time and accepts for admission. Patient received aspirin 324 mg, Plavix and Tylenol in the department. Patient has not had any additional neurologic changes. Discharge Plan Departure Patient Disposition: Admitted as Observation Clinical Impression: Cerebrovascular accident Qualifiers: CVA mechanism: unspecified Qualified Code(s): I63.9 - Cerebral infarction, unspecified Admit Date/Time: 04/02/20 19:49 Admit Provider: Jeremy Merritt
[2020-04-02 18:22] LABS: UR Morphine/Opiate cutoff 300 Negative (Negative); Ur Creatinine Normal (Normal); Ur Specific Gravity Normal (Normal); Urine Amphetamines Negative (Negative); Urine Barbiturates Negative (Negative); Urine Benzodiazepines Negative (Negative); Urine Cocaine Negative (Negative); Urine MDMA Negative (Negative); Urine Methadone Negative (Negative); Urine Methamphetamines Negative (Negative); Urine Oxycodone Negative (Negative); Urine Phencyclidine Negative (Negative); Urine Tetrahydrocannabinol Negative (Negative); Urine Tricyclic Antidepressant Negative (Negative); Urine pH Normal (Normal)
[2020-04-02] MEDS: CLOPIDOGREL 75 MG TABLET PO (18:38)
[2020-04-02] MEDS: ASPIRIN 81 MG CHEW TAB 324 MG PO (18:38)
[2020-04-02 20:04] LABS: COVID19 -Nasal RAPID Negative (Negative)
--- NOTE | 2020-04-02 20:08 | PC.NURSE ---
Dr. Valverde and Elliott Merritt notified of HTN. No new orders at this time. Per admitting [employer] RELE[employer], floor will have parameters.
--- NOTE | 2020-04-02 20:22 | DI.MRI.S_ITS ---
PROCEDURE: MR STROKE Pre- and post-contrast brain MRI, non-contrast brain MR angiogram, pre- and postcontrast neck MR angiogram INDICATIONS: Left facial droop TECHNIQUE: Brain: Noncontrast axial T1 spin echo, axial T2 fast spin echo, sagittal and axial FLAIR, coronal T2 fast spin echo, axial gradient echo, axial diffusion and ADC through the brain. After the administration of contrast, axial 3D VIBE of the cranial vasculature and brain. Brain MRA: Non-contrast 3-D time of flight MR angiogram, with multiple zepqxzf-ulykaoocv-lclaizgudf (MIP) reformats performed. Neck MRA: Axial and sagittal TruFISP through the neck. Coronal dynamic MR angiogram during administration of contrast in the arterial and venous phases, with 3-dimenstional znnbnvl-zwtmkpnmv-whszrnnjqz (MIP) reformats constructed from subtraction images. COMPARISON: None. FINDINGS: Image quality: Excellent. BRAIN: CSF spaces: Ventricles are normal in size and shape. Basal cisterns are patent. No extra-axial fluid collections. Brain: No intracranial bleeds or mass effects. Vaz-white matter interface is normal. Diffusion weighted images show no acute ischemic insults. Brainstem appears normal. Normal intravascular flow voids are present. No abnormal intracranial enhancement. Skull and face: Calvarial marrow signal is normal. Orbits appear normal. Sinuses: Sinuses and mastoids are clear. BRAIN MR ANGIOGRAM: Anterior circulation: Intracranial internal carotid arteries are normal in size and enhancement. The flow within the paired anterior cerebral arteries is normal and symmetric. The flow within the middle cerebral arteries is normal and symmetric. The anterior communicating artery is seen. No stenoses, occlusions, or aneurysms. Posterior circulation: Dominant appearance of the left vertebral artery. Normal appearing basilar artery. 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 The flow within the posterior cerebral arteries is normal and symmetric. No stenoses, occlusions, or aneurysms. NECK MR ANGIOGRAM: Carotids: Great vessels demonstrate a conventional anatomy as they arise from the aortic arch. The origins of the common carotid arteries appear patent. The calibers and courses of both common carotid arteries are normal. The bifurcation regions appear normal bilaterally. The internal carotid arteries demonstrate normal course and caliber. Origin of the left vertebral artery within normal limits. The origin of the right vertebral artery not well seen. Dominant left vertebral artery. Normal appearing basilar artery. Miscellaneous: Subclavian arteries appear patent. Pre-contrast images through the neck show no soft tissue abnormalities. IMPRESSION: BRAIN MRI: No evidence of acute ischemia. No abnormal enhancement. BRAIN MR ANGIOGRAM: No focal stenosis or occlusion. NECK MR ANGIOGRAM: No hemodynamically significant ICA stenosis. Dictated by: Edwin Ortega M.D. on 04/03/2020 at 9:37 Approved by: Edwin Ortega M.D. on 04/03/2020 at 9:45
--- NOTE | 2020-04-02 20:22 | DI.ECHO.S_ITS ---
[place] [facility]---------+ [facility] +---------+ : : [address] : : : : [id number] : : : : Phone: [phone] Echocardiogram Report + + :Name: CARLINE STEPHEN Study Date: 04/03/2020 Height: 74 in : :[facility] ReadingLocation: Weight: 221 lb : : Gender: Male BSA: 2.3 m2 : :: 1965 Age: 54 yrs BP: 182/105 mmHg: :Reason For Study: CVA : :Ordering Physician: ENA, : :SANDY Performed By: Cecilia Arnold : :Referring: SANDY SUTHERLAND : + + Interpretation Summary Normal both left and right ventricle size and function. The ejection fraction is 60-65%. Both atria are normal in size. No valvular abnormallity. Mildly dilated aortic root and ascending aorta. Injection of contrast documented no interatrial shunt. Procedure: A two-dimensional transthoracic echocardiogram with color flow and Doppler was performed. The study quality was technically adequate. There is no prior echocardiogram noted for this patient. A saline contrast injection was performed to assess for cardiac shunting. The injection was performed through an intravenous line in the left arm. The patient was in sinus bradycardia with heart rates between 52-58 bpm during the exam. Left Ventricle: The left ventricle is normal in size and wall thickness. The ejection fraction is estimated to be 60-65%. There are no focal wall motion abnormalities. Diastolic parameters suggest probable normal left ventricular diastolic function and normal filling pressures. Right Ventricle: The right ventricle is normal in size and function. Atria: Both atria are normal in size. There is no Doppler evidence for an interatrial shunt. Injection of contrast documented no interatrial shunt. Mitral Valve: The mitral valve is normal in structure and function. There is trace mitral regurgitation. Aortic Valve: The aortic valve is trileaflet. The aortic valve opens well. There is no aortic valve stenosis. No aortic regurgitation is present. Tricuspid Valve: The tricuspid valve is normal in structure and function. There is trace tricuspid regurgitation. Right ventricular systolic pressure is estimated to be 23 mmHg plus the clinically estimated CVP which cannot be estimated on this exam. Pulmonic Valve: The pulmonic valve leaflets are thin and pliable; valve motion is normal. There is no pulmonic valvular regurgitation. Great Vessels: The aortic root is mildly dilated. The ascending aorta is mildly enlarged. The inferior vena cava was not well visualized. Pericardium/ Pleura There is no pericardial effusion. There is no pleural effusion. MMode/2D Measurements & Calculations LVIDd: 5.0 cm LVOT diam: 2.0 cm LVIDs: 3.2 cm Ao root diam: 4.2 cm FS: 36.1 % asc Aorta Diam: 3.9 cm EPSS: 0.79 cm Ao Arch Diam (Prox Trans): 3.0 cm IVSd: 1.0 cm LVPWd: 0.94 cm LV covarrubias. diameter/BSA (cm/m^2): 2.2 LV sys. diameter/BSA (cm/m^2): 1.4 LA A2 area: 20.5 cm2 RA long axis: 4.7 cm LA A4 area: 14.9 cm2 RA area: 13.7 cm2 LA length (vol): 5.4 cm RA vol: 34.0 ml LA vol: 48.4 ml RA : 15.0 ml/m2 LA vol index: 21.3 ml/m2 RVD1 (basal): 3.4 cm TAPSE: 1.6 cm Doppler Measurements & Calculations Ao V2 max: 123.5 cm/sec LVOT Max Eliazar: 112.7 cm/sec Ao V2 mean: 87.7 cm/sec LV V1 max P.1 mmHg Ao max P.1 mmHg LV V1 VTI: 27.2 cm Ao mean P.4 mmHg ESPERANZA(I,D): 3.2 cm2 Ao V2 VTI: 27.7 cm ESPERANZA(V,D): 2.9 cm2 sev ratio: 0.98 ESPERANZA indexed to BSA (cm^2/m^2): 1.4 MV E max eliazar: 87.2 cm/sec TR max eliazar: 243.3 cm/sec MV A max eliazar: 69.8 cm/sec TR max P.7 mmHg MV E/A: 1.2 PA V2 max: 57.6 cm/sec Med Peak E' Eliazar: 7.5 cm/sec PA V2 mean: 39.0 cm/sec E/E' med: 11.6 PA mean P.72 mmHg Lat Peak E' Eliazar: 9.7 cm/sec PA pr(Accel): 22.5 mmHg E/E' lat: 9.0 E/e' average: 10.3 MV dec time: 0.19 sec SV(LVOT): 87.3 ml Electronically signed by: Rickey Truong on Reading Physician:04/03/2020 11:19 AM
[2020-04-02] MEDS: ACETAMINOPHEN 325 MG TABLET 650 MG PO (21:14)
--- NOTE | 2020-04-02 21:42 | PM.HP.1 ---
History of Present Illness History of Present Illness Date Patient Seen: 04/02/20 Time Patient Seen: 20:50 Chief complaint: Left Eye Issues, Neck Pain, Right Side Mouth Swell Narrative: Mr. Doug Hare is a 54-year-old male who has never smoked and has a past medical history significant for hypertension, hyperlipidemia and kidney stones who presents to the ER with left facial droop. The patient states he went to bed in his usual state health on and woke night in the middle the night to urinate and experience disequilibrium without fall or trauma. Upon waking Friday morning the patient had developed a left facial droop. The patient acknowledges difficulty drinking but denies coughing on eating or thin liquids. The patient additionally reports feeling initially injuring at that time around his left eye which progressed to pain with blurred vision and left neck pain that he was self treating with Tylenol and or ibuprofen. 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 reporting episodes of confusion in his new position. His father had had a stroke in his mother cardiovascular disease. The patient denies headaches, further ataxia, weakness, numbness or tingling. The patient has had no recent illness and denies fevers or chills, nasal congestion or sore throat. He reports no chest pain or palpitations. He endorses exertional dyspnea increasing over the last week but no coughing or wheezing. He denies epigastric or abdominal pain and has no nausea or vomiting. He reports no difficulty with urination with nocturia 2 times nightly. He denies diarrhea or constipation. Upon arrival to the ER the patient has a temperature of 90.7?, heart rate of 66, blood pressure 185/101, respirations of 18 saturating 99% on room air. The patient went for urgent stroke CT stroke protocol which found no acute intracranial processes. He further underwent CT angio of the head neck which further identified no acute process is, no hemodynamically significant stenosis of the neck arteries. Twelve lead EKG was obtained which finds sinus rhythm with left anterior hemiblock without ectopy ST or T-wave changes. No evidence of infarct. On laboratory analysis the patient has a white count of 7.9, hemoglobin 16.5, hematocrit of 46.7 and platelets 189. His elevated PT at 12.8 with an INR 1.1 and a PTT of 33. His chemistries are all within normal limits with a BUN of 21 and creatinine 1.25 with a nonfasting glucose 111. His liver function within normal ranges. His total CK is 200 a CK-MB of 1.88 with an index of 0.9%. His troponin is negative at less than 0.012. Urine drug screen is negative. In the ER the patient received aspirin 324 mg and normal saline 1 L. Tele stroke was consulted and the patient is not a candidate for tPA or vascular intervention. They recommended aspirin with the addition of Plavix. The patient is admitted to the hospitalist service for rule out CVA. Patient History Medical History (Updated 04/02/20 @ 23:24 by NEPTALI Rodrigues) Bilateral kidney stones Hyperlipidemia Hypertension Surgical History (Updated 04/02/20 @ 23:24 by NEPTALI Rodrigues) History of appendectomy History of lithotripsy History of surgery on arm Family & Social History Family History (Updated 04/02/20 @ 23:27 by NEPTALI Rodrigues) Father Cancer Stroke Sister Diabetes mellitus Mother Cardiovascular disease History of four vessel coronary artery bypass graft Social History: household members spouse Prior Living Arrangements House Safety & Behavioral: Feels Safe in Current Yes Environment Been Physically Hurt or No Threatened By a Person Suicidal Ideation Description None Suicide Plan Description No Plan Tobacco & Substance use: Smoking Status Never smoker alcohol intake current alcohol intake frequency holiday/special occasion Substance Use Type does not use Meds Home Medications and Allergies Home Medications Medication Instructions Recorded Confirmed Type acetaminophen 1,000 mg PO Q6H PRN 04/02/20 04/02/20 History aspirin 81 mg PO DAILY 04/02/20 04/02/20 History atorvastatin 20 mg PO DAILY 04/02/20 04/02/20 History ibuprofen [Advil] 400 mg PO Q6H PRN 04/02/20 04/02/20 History ibuprofen [Motrin] 200 mg PO Q6H PRN 04/02/20 04/02/20 History Allergies Allergy/AdvReac Type Severity Reaction Status Date / Time egg [EGG] Allergy Unknown Anaphylaxis Verified 04/02/20 22:33 feathers [FEATHERS] Allergy Unknown Difficulty Verified 04/02/20 22:33 Breathing Influenza Virus Vaccines Allergy Unknown Anaphylaxis Verified 04/02/20 22:33 [INFLUENZA VIRUS VACCINES] Review of Systems Review of Systems ROS: Yes All systems reviewed with the patient and are negative except as otherwise documented Exam Vital Signs (past 8 hours): - 04/02/20 17:27 04/02/20 17:29 04/02/20 17:30 Temperature 98.7 F Pulse Rate 66 69 66 Respiratory Rate 18 Blood Pressure 185/101 H Pulse Oximetry 99 97 98 04/02/20 17:31 04/02/20 17:56 04/02/20 18:00 Temperature Pulse Rate 66 63 65 Respiratory Rate 24 19 27 H Blood Pressure 185/101 H 168/95 H Pulse Oximetry 97 97 97 04/02/20 18:30 04/02/20 19:00 04/02/20 19:30 Temperature Pulse Rate 55 L 56 L 63 Respiratory Rate 18 18 20 Blood Pressure Pulse Oximetry 97 96 97 04/02/20 19:37 04/02/20 19:56 04/02/20 19:57 Temperature Pulse Rate 62 57 L Respiratory Rate 32 H 21 Blood Pressure 174/101 H 182/105 H Pulse Oximetry 95 98 04/02/20 20:15 Temperature 97.3 F L Pulse Rate 55 L Respiratory Rate 20 Blood Pressure 157/107 H Pulse Oximetry 98 Oxygen Delivery Method Room Air Narrative Exam Narrative: GENERAL APPEARANCE: well developed, well nourished, in no acute distress. HEENT: Asymmetrical face ease with prominent left facial droop, for flattening nasal labial fold, exophthalmos left eye, impaired eyelid closing, blurred vision left eye, visual mahoney intact, PERRLA, conjunctiva clear, EOMs intact with slight bilateral nystagmus, no rhinorrhea or epistaxis, mucous membranes are moist and pink, tongue with white coating, no lesions, no uvular or tone deviation NECK/THYROID: neck supple, no JVD, no carotid bruit, no thyromegaly, trachea midline. LYMPH NODES: no cervical or supraclavicular lymphadenopathy. SKIN: [place], warm and dry, no visible lesions, rashes, ulcerations or petechiae. HEART: regular rate and rhythm, S1-S2, no murmur, no rubs or gallops, brisk capillary refill, no edema LUNGS: clear to auscultation bilaterally, no coarseness crackles or wheezing, no cough present CHEST: Symmetrical movement, no accessory muscle use, good tidal volume. ABDOMEN: Soft, no distention, no abdominal tenderness, no guarding or peritoneal signs, no organomegaly, no flank or suprapubic tenderness, active bowel tones. BACK: Normal curvature, nontender to palpation, no CVA tenderness on percussion EXTREMITIES: Facno extremity weakness or drift, strength is 5/5 and symmetrical, no deformities or joint effusions, no cyanosis or clubbing. NEUROLOGIC: AAO x4, and NIH 5, marked facial droop, loss of nasal labial fold, loss motor function left upper middle and lower branches of left face, slight slurring of speech, sensation intact to light touch, no peripheral numbness or tingling or ataxia. PSYCH: Anxious, cooperative, stable behavior. Objective Labs Result Diagrams: 04/02/20 17:30 04/02/20 17:30 Labs: Laboratory Results - last 24 hr 04/02/20 04/02/20 04/02/20 17:30 17:30 17:30 WBC 9.7 RBC 5.26 Hgb 16.5 Hct 46.7 MCV 88.8 MCH 31.3 MCHC 35.2 RDW 13.8 Plt Count 189 Neut % (Auto) 55.6 Lymph % (Auto) 32.7 Moore % (Auto) 7.5 Eos % (Auto) 3.2 Baso % (Auto) 1.0 Neut # (Auto) 5400 Lymph # (Auto) 3200 Moore # (Auto) 700 Eos # (Auto) 300 Baso # (Auto) 100 PT 12.8 H INR 1.1 APTT 33 Sodium 140 Potassium 3.9 Chloride 108 H Carbon Dioxide 28 BUN 21 H Creatinine 1.25 Estimated GFR 60.0 BUN/Creatinine Ratio 16.8 Glucose 111 H Calcium 9.4 Total Bilirubin 0.9 AST 38 ALT < 4 Alkaline Phosphatase 80 Total Creatine Kinase 200 H CK-MB (CK-2) 1.88 CK-MB (CK-2) Rel Index 0.9 L Troponin I < 0.012 Total Protein 7.9 Albumin 4.4 Globulin 3.5 Albumin/Globulin Ratio 1.3 U Opiates 300ng/mL cut Ur Oxycodone Screen Urine Methadone Screen Ur Barbiturates Screen U Tricyclic Antidepress Ur Phencyclidine Scrn Ur Amphetamines Screen U Methamphetamines Scrn Ur MDMA Scrn (Ecstasy) U Benzodiazepines Scrn Urine Cocaine Screen U Marijuana (THC) Screen SARS-CoV-2 (PCR) 04/02/20 04/02/20 18:04 18:34 WBC RBC Hgb Hct MCV MCH MCHC RDW Plt Count Neut % (Auto) Lymph % (Auto) Moore % (Auto) Eos % (Auto) Baso % (Auto) Neut # (Auto) Lymph # (Auto) Moore # (Auto) Eos # (Auto) Baso # (Auto) PT INR APTT Sodium Potassium Chloride Carbon Dioxide BUN Creatinine Estimated GFR BUN/Creatinine Ratio Glucose Calcium Total Bilirubin AST ALT Alkaline Phosphatase Total Creatine Kinase CK-MB (CK-2) CK-MB (CK-2) Rel Index Troponin I Total Protein Albumin Globulin Albumin/Globulin Ratio U Opiates 300ng/mL cut Negative Ur Oxycodone Screen Negative Urine Methadone Screen Negative Ur Barbiturates Screen Negative U Tricyclic Antidepress Negative Ur Phencyclidine Scrn Negative Ur Amphetamines Screen Negative U Methamphetamines Scrn Negative Ur MDMA Scrn (Ecstasy) Negative U Benzodiazepines Scrn Negative Urine Cocaine Screen Negative U Marijuana (THC) Screen Negative SARS-CoV-2 (PCR) Negative Assessment & Plan Assessment & Plan narrative: This is a 54-year-old male patient who presents to the ER after waking with left facial droop 2 days ago with associated complaints of left eye pain with exophthalmos and neck pain. Patient denies prior similar symptoms and denies headache, numbness or tingling or weakness but has had difficulty intermittently with ambulation. 1. Acute left facial droop, rule out CVA versus Graves's palsy, present on admission, active. -the patient has developed a worsening left facial droop progressive over hours onset 2 days ago.. No complaints of headaches or dizziness, associated left facial numbness of all 3 facial nerve branches. Positive family history with his father having had stroke in his mother having cardiovascular disease. -CT stroke protocol and CT angio of the head neck find no acute intracranial processes. -ordered MR stroke in the morning. Pending results of out, may consider initiation of steroid therapy for treatment of Graves's palsy. -ordered echocardiogram. -patient passed bedside swallow eval, continue home regimen of aspirin 81 mg daily and add Plavix 75 mg daily. -will increase the dose of atorvastatin from 20-40 mg daily. -will obtain hemoglobin A1c, thyroid panel and lipid panel for risk stratification. -request PT, OT and ST to evaluate and treat. -ordered Tylenol for mild pain and oxycodone 5 mg to 10 mg every 4 hours as needed for pain. 2. Essential hypertension, chronic, active -patient self reports history of ?prehypertension? and has not been on antihypertensive medications. -the patient has had chest tightness but none at present and reports developing exertional dyspnea. -upon arrival to the ER the patient has blood pressure of 185/101 and endorses increased workplace stress likely exacerbating hypertension. -ordered echocardiogram -the patient is beyond window for permissive hypertension, ordered hydralazine 10 mg IV as needed for sustained systolic blood pressure greater than 180 or diastolic greater than 100. -ordered losartan 25 mg x 1 now and 25 mg daily. -will follow blood pressure trends. 3. Acute visual changes left eye with exophthalmos, present on admission, active. -the patient has left axis thalamus with difficulty closing his eft eyelid with associated ocular pain and blurred vision. -extra ocular motions are intact bilaterally no change in pain with ocular movement, pupils approximate 3.5 mm and equal bilaterally. Decreased visual acuity left eye. -requested Dr. Valverde, ER provider, to assess interocular pressures: Right is 20, left is 15 with 95% accuracy. -will request ophthalmic consult. -ordered Lacri-Lube ointment left eye at bedtime and as needed for corneal protection. 4. Hyperlipidemia, chronic, stable -the patient has previously been on atorvastatin 20 mg daily which is increased to 40 mg daily.. -will obtain lipid panel. VTE prophylaxis: Enoxaparin IV fluid: Saline lock Diet: Heart healthy Code status: Full code: Patient designates his Bhavna to be his surrogate decision maker. The patient is admitted to the hospital due to the severity of the symptoms and need for further monitoring and diagnostic evaluation. The patient is admitted as observation status with expected length of stay to be less than 2 midnights. COVID-19 COVID-19 status: Negative Result date/Date tested (Pos, Neg/Pending): 04/02/20 Scores GCS Garrison coma scale eye opening: Spontaneous Addis coma scale verbal response: Orientated Garrison coma scale motor response: Obey commands Addis coma scale total score: 15 NIHSS Level of Conciousness: Alert, keenly responsive Ask month/age: Answers both questions correctly. Open/close eyes, close hand: Performs both tasks correctly Best gaze horizontal: Normal Visual mahoney: No visual loss Facial palsy: Complete paralysis, absence of movement in the upper and lower face Left arm drift: No drift for full 10 sec Right arm drift: No drift for full 10 sec Left leg drift: No drift for full 5 sec Right leg drift: No drift for full 5 sec Limb ataxia: Absent Sensory on face/arms/legs: Mild to moderate sensory loss, can tell touch Best language: No aphasia, normal Dysarthria: Mild to mod,some slurring Extinction or inattention: No abnormality Total NIH Stroke scale score: 5
[2020-04-02] MEDS: OXYCODONE IR 5 MG TABLET PO (22:34)
[2020-04-02] MEDS: ATORVASTATIN 20 MG TABLET 40 MG PO (22:34)
[2020-04-02] MEDS: PROPARACAINE 0.5% OPHTH SOL 1 DROPS EYE-LEFT (22:35)
[2020-04-03] MEDS: LOSARTAN 25 MG TABLET PO ×2 (00:48→09:35)
[2020-04-03] MEDS: OXYCODONE IR 5 MG TABLET PO ×2 (03:50→09:46)
[2020-04-03 03:59] VITALS: BP 150/94; PULSE 62; RESP 16; TEMP 36.8; O2SAT 95
--- NOTE | 2020-04-03 04:00 | PC.NURSE ---
Per verbal order from Elliott Merritt, since the eye drops are not yet available, Place 2 drops of saline in the left eye PRN to prevent and treat dry eye.
[2020-04-03 06:12] LABS: Hemoglobin A1C% w Est Avg Glu 5.6 % (4.0-6.0)
[2020-04-03 06:15] LABS: BUN Creatinine Ratio 17.5 (6-22); Blood Urea Nitrogen 22 mg/dL (9-20); Calcium 8.9 mg/dL (8.4-10.2); Carbon Dioxide 24 mmol/L (22-32); Chloride 107 mmol/L (98-107); Cholesterol 101 mg/dL (140-199); Estimated Glomerular Filt Rate 59.4 mL/min (>60); Glucose 110 mg/dL (70-100); HDL Cholesterol 29 mg/dL (40-60); HEMOLYSIS 15 (0-50); LDL Cholesterol Calculated 47 mg/dL (<100); Magnesium 2.2 mg/dL (1.6-2.3); Potassium 3.8 mmol/L (3.4-5.1); Sodium 138 mmol/L (137-145); Triglycerides 125 mg/dL (35-150)
[2020-04-03 06:53] LABS: Thyroid Stimulating Hormone 5.21 uIU/mL (0.47-4.68)
[2020-04-03 08:00] VITALS: O2SAT 97
[2020-04-03 08:01] VITALS: BP 141/85; PULSE 55; RESP 16; TEMP 36.2; O2SAT 97
[2020-04-03] MEDS: CLOPIDOGREL 75 MG TABLET PO (09:33)
[2020-04-03] MEDS: ASPIRIN EC 81 MG TABLET PO (09:33)
[2020-04-03] MEDS: ENOXAPARIN 40 MG/0.4 ML SYRINGE SUBCUT (09:35)
[2020-04-03] MEDS: ACETAMINOPHEN 325 MG TABLET 650 MG PO (09:46)
--- NOTE | 2020-04-03 10:27 | DIET.PN ---
Dietary Progress Note Assessment: Mr. Hare is a 54-year-old male who has a past medical history significant for hypertension, hyperlipidemia and kidney stones who presented to the ER with left facial droop. The patient reports going to bed in his usual state health on . Upon waking Friday morning the patient had developed a left facial droop. The patient acknowledges difficulty drinking but denies coughing on eating or thin liquids. He was assessed by [employer]CH[employer]IC prior to my visit who recs thin liquid. 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 He typically eats 2 sandwiches during his shift. He reports large consumptions of rice w/ soy sauce. He denies smoking and is does not currently exercise. He continues to have elevated BP. HT: 187.96cm WT: 100.24kg UBW: no change BMI: 28.4 Labs: Chl: 107 BUN: 22 Cr: 1.26 BP: 185/101, 174/101, 157/107 MNA: 14 Chip: 21 Nutrition Diagnosis: Altered nutrition related lab values r/t kidney/cardiac dysfunction aeb elevated BUN, Cr, BP, diagnosis possible CVA, estimated intake of foods high in sodium/ saturated fat. Interventions: 1. Reviewed usual dietary intake. Provided education on heart healthy nutrition therapy. Discussed importance of reduced sodium intake, heart healthy fats, fiber intake, and fluids. Handouts provided. 2. Recommended try to exercise 30 min several days throughout the week. Diet Order: heart healthy EER: 2200 gabriel (22cal/kg); 120g pro (1.2g/kg CVA); 1500-200mg sodium Monitoring/Evaluations: weight, PO's, labs, diet tolerance
[2020-04-03] MEDS: valACYclovir 500 MG TABLET 1000 MG PO (10:31)
[2020-04-03] MEDS: POLYVINYL ALCOHOL DROPS 1 DROPS EYE-LEFT (10:31)
[2020-04-03] MEDS: predniSONE 20 MG TABLET 60 MG PO (10:31)
--- NOTE | 2020-04-03 10:34 | CM.DANOTE ---
DCP: Case received, EMR reviewed and met with patient. Introduced self and role. Was able to obtain information from patient regarding his baseline activity level prior to hospitalization. DCP assessment completed with information currently available. Patient is a 54 year old male who admitted yesterday evening to the care of the hospitalist team. PCP: NEPTALI Ramsey. Payer: confirmed: Briana Oseguera/Tammy Danielle. Patient came to the hospital via private vehicle secondary to havin left eye issues, as well as facial droop. Patient just had MRI, pending results. He is here to rule out CVA. He will be working with P.T. Met with patient in his room. He is alert and oriented, pleasant. 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 He is independent, and resides in [place] with his spouse, Bhavna. He ambulates independently. 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 P: DCP to continue to follow. P.T. just arrived in his room, and will be working with him. Ashleigh Drew RN/[employer]
--- NOTE | 2020-04-03 11:53 | PT.IIE ---
Surgical History (Last Updated 04/02/20 @ 23:24 by NEPTALI Rodrigues) History of appendectomy History of lithotripsy History of surgery on arm Medical History (Last Updated 04/02/20 @ 23:24 by NEPTALI Rodrigues) Bilateral kidney stones Hyperlipidemia Hypertension Physical Therapy Inpatient Evaluation/Re-Eval M1 PT/OT-IP Prior Functional Status Start: 04/03/20 08:14 Freq: NEEDED Status: Active Protocol: Document 04/03/20 11:00 AW (Rec: 04/03/20 11:53 AW [id number]) Medical Review Prior Functional Status Medical History Reviewed Yes Communication WNL. Pt is an effective verbal communicator. Mobility and Gait Pt is independently mobile without AD and without meaningful limit. Activities of Daily Living and IADL's Independent. Social History Household Members spouse Living Arrangements House Number of Floors (Floors) Two Floors Number of Stairs To Enter/Railing? Split level home with 8 KATHIE/ wide bilateral rails. Once inside, pt climbs 7 steps to bedroom level with right rail ascending. Home Environment Standard Height Toilet,Walk in Shower Home Equipment Front Wheel Walker,Straight Cane Employment Status [employer] Fe[employer] Employed Additional Social History Comment Pt lives in [place] with his , Bhavna. 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 Pt reports high stress levels. M2 PT-IP Current Condition Start: 04/03/20 08:14 Freq: NEEDED Status: Active Protocol: Document 04/03/20 11:00 AW (Rec: 04/03/20 11:53 AW [id number]) Physical Therapy Current Condition Current Condition Evaluation Date 04/03/20 Treatment Diagnosis L facial droop, L side weakness, L eye and neck pain Onset Date 03/30/20 M3 PT-IP Subjective Start: 04/03/20 08:14 Freq: NEEDED Status: Active Protocol: Document 04/03/20 11:00 AW (Rec: 04/03/20 11:53 AW [id number]) Subjective Physical Therapy Visit Type Type Initial Evaluation Visit Start Time 10:27 Visit Stop Time 11:00 Total Visit Minutes 33 Physical Therapy Visit Comments Patient Comments Pt is willing to participate with PT Therapy Pain Assessment Pain When Pain Assessed At Rest Pain Present Pain Present Pain Reported Location Left Eye Intensity 6 Scale Used Numeric (0 - 10) Neck Intensity 6 Scale Used Numeric (0 - 10) M4 PT-IP Mobility and Gait Start: 04/03/20 08:14 Freq: NEEDED Status: Active Protocol: Document 04/03/20 11:00 AW (Rec: 04/03/20 11:53 AW [id number]) PT-Bed Mobility Assessment Supine to Sit Supine to Sit Independent Sit to Supine Sit to Supine Independent Scooting Scooting to Edge of Bed Independent PT-Transfer Assessment Sit to and From Stand Sit to and from Stand Independent Equipment Transfer Assistive Device None,Gait Belt Orthotic/Prosthetic Devices or Brace: No Transfers Transfer Destination Bed,Chair Transfer Technique Stand Step Pivot Transfer Ability Level of Assist Independent Comments Mobility Comments Pt was lying in the bed as PT arrived. He completed all bed mobility and transfers without assist. He participated in Functional Gait Assessment before returning to the room and returning to bed. Gait Assessment Gait Gait Assistance Required: Standby Assistance Distance (Feet) 400 Assistive Devices Assistive Device None,Gait Belt Gait Deviations General Gait Pattern Decreased Stride Length, Decreased Feet Clearance, Lateral Trunk Lean,Step-to Gait Factors Limiting Gait Function Factors Limiting Gait Function Decreased Strength,Pain,Poor Balance Comments Gait Comments Pt completed FGA with score of 25/30. Single points were deducted for gait with horizontal head turns, gait and pivot turn, NBOS, walking backwards, and stairs. Stair Climbing Assessment Evaluation Level of Assist On Stairs Independent Devices Stair Climbing Assistive Devices Left Railing,Right Railing Technique/Endurance Stair Climbing Direction Ascend and Descend Stair Climbing Technique Step Over Step Number of Steps Climbed 3 Query Text: Stair Climbing Set # Repetitions (reps) 2 PT-Balance Assessment Sitting Balance and Reactions Static Sitting Balance Ability Normal Dynamic Sitting Balance Ability Normal Standing Balance and Reactions Static Standing Balance Ability Good Dynamic Standing Balance Ability Good Device Used none Balance Tests Romberg WNL EO and EC Functional Assessments Functional Tests Functional Gait Assessment 25/30 Other Functional Tests Performed See gait comments for details. M5 PT-IP Objective Assessments Start: 04/03/20 08:14 Freq: NEEDED Status: Active Protocol: Document 04/03/20 11:00 AW (Rec: 04/03/20 11:53 AW [id number]) Orientation Orientation/Cognition Level of Alertness Alert Orientation Name,Age,Birthday,Month,Date, Year,Day of Week,Place, Situation Safety Awareness Understands Safety Issues Comments Speech content was appropriate . Pt is slurring words due to facial assymetry. Gross Range of Motion Upper Extremity ROM Assessment Within Functional Limits Lower Extremity ROM Assessment Within Functional Limits Strength Upper Extremity Strength Assessment Left Impaired Hand 4-/5 Lower Extremity Strength Assessment Left Impaired Hip 4/5 Knee 4/5 Ankle 4/5 Comments Strength Comments Left side grossly 1/2 grade less than right side. Coordination Assessment Gross Coordination Gross Coordination WNL Assessment Finger to Nose Test Normal Performance Foot Tapping Test Normal Performance Sensation Assessment Sensation Light Touch Impaired Sensation Description Numbness Comments Sensation Comments Pt reports dull light touch on left side of face. Sensation intact in all extremities. Muscle Tone Muscle Tone WNL Yes Other Assessments Other Other Assessments Occulomotor exam was remarkable for left eye lag on pursuits and blurred vision in left eye. M6 PT-IP Treatment Start: 04/03/20 08:14 Freq: NEEDED Status: Active Protocol: Document 04/03/20 11:00 AW (Rec: 04/03/20 11:53 AW [id number]) Physical Therapy Treatment Education Education Provided Safety Other Treatments Other Treatment Performed Provided education on signs and symptoms of CVA/TIA. Discussed importance of vision in terms of balance systems integration and need for extra caution at this time. M7 PT-IP Assessment and Plan Start: 04/03/20 08:14 Freq: NEEDED Status: Active Protocol: Document 04/03/20 11:00 AW (Rec: 04/03/20 11:53 AW [id number]) PT Summary Assessment and Plan Potential Rehabilitation Potential Good Status of Condition at Evaluation Evolving Summary Impairments Pain,Strength,Balance, Sensation,Gait Assessment Summary Doug is a 54 yo man seen for PT evaluation after being admitted with left facial droop, blurred vision, and left neck and eye pain. He is independent in all regards at baseline. MRI and head CT are negative. On evaluation, pt presents with left side strength 1/2 grade less than right side, impaired vision in the left eye, and dynamic balance impairment as evidenced by a score of 25/30 on Functional Gait Assessment (less than norms for age- matched peers - Jaxson, 2007). Pt will be safe to discharge home with outpatient PT. Goals Gait Goal Independent Gait Distance 500 Other Goals - up/down 15 steps with R rail ascending IND Frequency of Treatment Frequency Of Treatment Once a Day Treatment Plan Physical Therapy Treatment Plan Gait Training,Therapeutic Exercise,Balance Retraining, Discharge Planning, Neuromuscular Re-ed Other Recommendations and Next Treatment high level dynamic balance Focus Recommendations To Nursing Amount of Assist Needed Standby Assistance Discharge Recommendations PT Discharge Recommendations Outpatient PT Transportation Needs at Discharge Private Vehicle
[2020-04-03 12:00] VITALS: O2SAT 97
--- NOTE | 2020-04-03 12:09 | ST.IPIE ---
Visit Care Team Role Provider Type Anne-Marie Valverde DO Referring Provider Physician Specialty: Emergency Medicine Address: [address] [place] [address], [id number] Email: [email or web address] NEPTALI Ramsey Family Provider Advanced Delivery Consultant Primary Care Provider Specialty: Medical Address: [address] [place] [address], [id number] Email: [email or web address] Alamo MD Emergency Provider Physician Specialty: Emergency Medicine Address: [address] [place] [address], [id number] Email: [email or web address] NEPTALI Rodrigues Admit Provider Physician Attending Provider Specialty: Internal Medicine Address: [address] [place] [address], [facility] Email: [email or web address] Past Medical History (Last Updated 04/02/20 @ 23:24 by NEPTALI Rodrigues) Bilateral kidney stones (Medical) Hyperlipidemia (Medical) Hypertension (Medical) ST IP 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 Clinical Swallow Evaluation Start: 04/03/20 08:37 Freq: Status: Active Protocol: Document 04/03/20 08:37 MELVA (Rec: 04/03/20 08:39 MELVA [id number]) Clinical Swallow Evaluation Session Time Visit Start Time 09:40 Visit Stop Time 09:55 Total Visit Minutes 15 Referral Referring Provider NEPTALI Rodrigues Reason for Referral Stroke Protocol Setting Assessment Location Acute Care Visit Type Note Type Initial evaluation Next Note Type Next Note Type Treatment Note Patient Information Identification Type Name,ID Card History Per H&P, the pt is a 54-year- old male who presented to the ER after waking with left facial droop 2 days ago with associated complaints of left eye pain with exophthalmos and neck pain. Patient denied prior similar symptoms and denied headache, numbness or tingling or weakness but has had difficulty intermittently with ambulation. CT stroke protocol found no acute intracranial processes, and CT angio of the head neck further identified no acute process, no hemodynamically significant stenosis of the neck arteries. Twelve lead EKG found sinus rhythm with left anterior hemiblock without ectopy ST or T-wave changes. No evidence of infarct. His chemistries were all within normal limits. Subjective Observations The pt was awake lying in bed conversing with Nsg following MRI. He was able to provide case history and noted difficulty with speech articulation and occasionally feeling overwhelmed by the amount of information being given to him RE his current medical status. He reported a bit of confusion last week when he was at work, but felt less confusion today. Reported by Patient Current Diet Regular,Thin liquids Baseline Feeding Method Independent in self-feeding Objective Assessment Mental Status Alert,Responsive,Cooperative Dentition Within normal limits Lip Function Moderate impairment Observation of Lips at Rest Left sided weakness/Drooping Pucker Reduced range of motion, Reduced strength,Left sided weakness/drooping Lip Retraction Reduced range of motion,Left sided weakness/Drooping Alternating Pucker/Lip Retraction Reduced range of motion, Incoordination Tongue Function Mild impairment Observations of Tongue at Rest Within normal limits Tongue Protrusion Within normal limits Tongue Retraction Within normal limits Tongue Lateralization Reduced strength Jaw Function Within normal limits Observations of Jaw at Rest Within normal limits Jaw Opening Within normal limits Jaw Closing Within normal limits Jaw Lateralization Within normal limits Hard/Soft Palate Function Within normal limits Observations of Hard/Soft Palate Within normal limits Nasality Within normal limits Phonation Within normal limits Respiratory Sufficiency Within normal limits Comment Significant left side facial droop observed, primarily limiting labial and buccal strength and ROM; also preventing left eye blinking. Mildly reduced lingual strength also present. Impairments reduce pt's ability to masticate at left side of mouth, clear buccal cavity of oral bolus/residue with lingual sweep, and maintain adequate lip seal for liquids consumed by cup or by straw at right side of mouth. Liquid oral containment is better with straw at left side of mouth, and the pt is managing left side buccal residue with liquid wash. Right side mastication is adequate for bolus prep. Food and Liquid Trials Position During Assessment Upright (90 degrees) Liquids Trialed Thin Solids Trialed Puree,Dysphagia Mechanical, Mechanical Soft,Regular Administration Type Straw,Self-feeding Oral Impairment Moderately impaired Oral Phase Comments Oral motor/strength impairments reduce pt's ability to masticate at left side of mouth, clear buccal cavity of oral bolus/residue with lingual sweep, and maintain adequate lip seal for liquids consumed by cup or by straw at right side of mouth. Liquid oral containment is better with straw at left side of mouth, and the pt is managing left side buccal residue with liquid wash. Right side mastication is adequate for bolus prep. A/P propulsion and posterior oral containment appear to be WNL. Pharyngeal Impairment Within normal limits Pharyngeal Phase Comments Swallow trigger appears to be timely. Hyolaryngeal elevation and excursion WNL via palpation. No overt s/sx of aspiration were observed. The pt's voice remained clear throughout, and he had no complaints of sticking sensation or other difficulty or discomfort with swallow. Fatigue/Endurance Endurance WNL Findings Swallowing Function Oral phase dysphagia Severity of Swallow Impairment Mildly-moderately impaired Contributing Factors to Swallow Reduced oral strength/ Impairment coordination/sensation Prognosis Good Based on Cognitive status,Age,History of aspiration/aspiration pneumonia,Comorbidities, Duration of symptoms/severity Comments Effortful oral prep/swallow phase. Pt may experience biting of L) cheek Recommendations Instrumental Assessment No Swallowing Treatment Yes Frequency 1-2 visits Duration over hospital stay Recommended Solids Regular Recommended Liquids Thin Safety Precautions/Swallowing Remain upright (90 degrees) Recommendations during all oral intake,Upright position at least 30 minutes after meals,Small bites and sips when eating,Strict oral care after intake,Check for pocketing Medication Recommendations As Tolerated Discharge Recommendations Home Education Patient/Caregiver Education Described results of evaluation,Patient expressed understanding of evaluation, Patient expressed agreement with goals & treatment plans, Patient expressed understanding of safety precautions,Patient expressed understanding of feeding recommendations Goals Short-term Goals 1. Pt will perform oral motor exercises independently to improve oral prep and swallow phases. Long-term Goals 1. The pt will tolerate regular diet and thin liquids with oral prep/swallow phases WFL to maintain adequate nutrition and hydration. 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 Patient History 54-yo male with significant left side facial droop admitted for evaluation of CVA . Referral Referring Physician NEPTALI Rodrigues Reason for Referral Stroke Protocol Mental Status Mental Status Alert,Responsive,Cooperative Subjective Observations Subjective Pt alert, conversant, with c/o difficulty producing clear speech. Oral Motor Lips Function Moderate Impairment Observation at rest Left side facial droop reducing pucker and retraction Tongue Function Mild Impairment Observations at rest WNL Protrusion WNL Retraction WNL Lateralization Mildly reduced Jaw Function WNL Soft Palate Function WNL Respiration/Phonation Phonation Stimulus Case History, general conversation Quality WNL Conversation Stimulus Case History, general conversation Quality WNL Diadochokinetic Rates P^ Quality WNL T^ Quality WNL K^ Quality WNL P^T^K^ Quality Mild Impairment Comments Improved in repetitions of [place] Speech Intelligibility Awareness/Strategy Use Description Type of awareness/use Uses consistently Findings Details Motor Speech Function Mild Impairment Type of Impairment Imprecise articulation secondary to left side facial droop Assessment Details Assessment The pt presents with mild oral motor impairment/Dysarthria secondary to left side weakness and facial droop. Symptoms are consistent with CVA or Graves's Palsy and characterized by imprecise articulation and reduced rate of speech d/t slowed oral motor movements and reduced ROM. The pt's speech was ~95% intelligible, requiring mild- moderately increased effort by the listener with occasional lip reading being beneficial. Anticipate intelligibility may reduce somewhat when the pt is back in the community and wearing a mask. Expressive, receptive, and cognitive communication skills appear to be WNL based on informal observations. Education and training of oral motor exercises were provided to the pt orally with demonstration and in writing. He returned demonstration, exhibiting and verbalizing good understanding. Prognosis Rehabilitation Potential Excellent Recommendations Treatment Recommended Yes Frequency 1-2 visits Duration over hospital stay Therapy Recommendations Oral motor exercises to improve speech intelligibility and oral prep/swallow phase. Short Term Goals 1. The pt will perform oral motor exercises independently to increase strength and ROM of oral musculature to improve speech intelligibility. 2. The pt will use compensatory speech strategies independently to increase speech intelligibility to meet his personal and professional communication needs. Residential Goals 1. The pt will produce speech intelligibility adequate to communicate effectively in interpersonal conversations in his personal, social, and employment settings. Patient/Family Education Education Described results of evaluation,Patient Understanding,Patient Needs More Info
[2020-04-03 12:16] VITALS: BP 149/109; PULSE 58; RESP 16; TEMP 36.2; O2SAT 94
--- NOTE | 2020-04-03 12:26 | PM.DS.1 ---
History of Present Illness History of Present Illness Chief complaint: Left Eye Issues, Neck Pain, Right Side Mouth Swell Discharge Providers Provider Date of admission: 04/02/20 19:49 Discharge Date: 04/03/20 Primary care physician: NEPTALI Ramsey Consults: 04/02/20 20:22 Consult to Dietitian, Adult Routine Comment: Reason For Exam: CVA, elevated BP without diagnosed hypertension Consult to Discharge Planning Routine Comment: Consult to Occupational Therapy Evaluate & Treat Comment: Physician Instructions: Evaluate and treat Consult to Physical Therapy Evaluate & Treat Comment: Physician Instructions: Evaluate and Treat Consult to Speech Therapy Evaluate & Treat Comment: Physician Instructions: Evaluate and treat Discharge provider: Bienvenido Penny DO Summary Hospital Course Discharge Diagnosis: CVA, ruled out Graves's palsy Essential hypertension Hyperlipidemia Hospital Course: This is a 54-year-old male with past med history of hypertension and hyperlipidemia presented to the hospital with 2 days of left facial droop and neck pain. There is concern for CVA and CTA of his head and neck were negative for stroke. He was taking aspirin at home which was continued and Plavix was added. His home atorvastatin was increased to high dose. He underwent MRI on 04/03/2020 which did not reveal any evidence of acute stroke. He also had an echocardiogram which was grossly normal. There was some mention of mildly dilated aortic root though this does not appear to be critical. He was advised to follow-up with his PCP for further follow-up and imaging. We suspect that the patient likely has Graves's palsy and he was started on prednisone and valacyclovir on 04/03 with plan for 7 day course. The patient was instructed to stay adequately hydrated. Plavix was discontinued at discharge due to lack of evidence of CVA. He was instructed to make a PCP follow-up in the next 1-2 weeks. He was also instructed to return to the hospital if his symptoms are to worsen or if he is to develop new neurological deficits. He was also instructed to use an eye covering at night and to use lubricating eyedrops to help with eye irritation. Status at Discharge Cognitive/behavioral status at discharge: oriented and at baseline, oriented Functional status at discharge: independent ambulation Time Spent with Patient Time spent: Greater than 30 minutes Exam Vital Signs (past 8 hours): - 04/03/20 08:00 04/03/20 08:01 04/03/20 12:16 Temperature 97.2 F L 97.2 F L Pulse Rate 55 L 58 L Respiratory Rate 16 16 Blood Pressure 141/85 H 149/109 H Pulse Oximetry 97 97 94 Oxygen Delivery Method Room Air Oxygen Flow Rate 0 Narrative Exam Narrative: Const General: cooperative Orientation: alert, awake and oriented x3 HEENT Neck: Normal range of motion EOM intact PERRLA Facial droop noted on left side involving both forehead and mandibular regions Chest Chest: normal inspection of the chest and normal palpation of entire chest wall Resp Effort & Inspection: normal respiratory effort Auscultation: no rales, no rhonchi and no wheezes Cardio Palpation: normal PMI Rate: regular rate Rhythm: regular rhythm Heart Sounds: S1 normal and S2 normal GI Inspection: normal to inspection Palpation: soft, No guarding and No tender Auscultation: normal bowel sounds Neuro General: patient alert, patient awake, patient oriented x3 Motor: Gross motor strength equal in bilateral upper and lower extremities. Sensory Exam: no sensory deficits noted Extrem General: normal to inspection Psych Mood: congruent mood Affect: normal affect Attitude: cooperative Thought Content: normal Objective Labs Result Diagrams: 04/02/20 17:30 04/03/20 05:19 Labs: Laboratory Results - last 24 hr 04/02/20 04/02/20 04/02/20 17:30 17:30 17:30 WBC 9.7 RBC 5.26 Hgb 16.5 Hct 46.7 MCV 88.8 MCH 31.3 MCHC 35.2 RDW 13.8 Plt Count 189 Neut % (Auto) 55.6 Lymph % (Auto) 32.7 Kimble % (Auto) 7.5 Eos % (Auto) 3.2 Baso % (Auto) 1.0 Neut # (Auto) 5400 Lymph # (Auto) 3200 Kimble # (Auto) 700 Eos # (Auto) 300 Baso # (Auto) 100 PT 12.8 H INR 1.1 APTT 33 Sodium 140 Potassium 3.9 Chloride 108 H Carbon Dioxide 28 BUN 21 H Creatinine 1.25 Estimated GFR 60.0 BUN/Creatinine Ratio 16.8 Glucose 111 H Hemoglobin A1c Calcium 9.4 Magnesium Total Bilirubin 0.9 AST 38 ALT < 4 Alkaline Phosphatase 80 Total Creatine Kinase 200 H CK-MB (CK-2) 1.88 CK-MB (CK-2) Rel Index 0.9 L Troponin I < 0.012 Total Protein 7.9 Albumin 4.4 Globulin 3.5 Albumin/Globulin Ratio 1.3 Triglycerides Cholesterol LDL Cholesterol, Calc HDL Cholesterol TSH U Opiates 300ng/mL cut Ur Oxycodone Screen Urine Methadone Screen Ur Barbiturates Screen U Tricyclic Antidepress Ur Phencyclidine Scrn Ur Amphetamines Screen U Methamphetamines Scrn Ur MDMA Scrn (Ecstasy) U Benzodiazepines Scrn Urine Cocaine Screen U Marijuana (THC) Screen SARS-CoV-2 (PCR) 04/02/20 04/02/20 04/03/20 18:04 18:34 05:19 WBC RBC Hgb Hct MCV MCH MCHC RDW Plt Count Neut % (Auto) Lymph % (Auto) Kimble % (Auto) Eos % (Auto) Baso % (Auto) Neut # (Auto) Lymph # (Auto) Kimble # (Auto) Eos # (Auto) Baso # (Auto) PT INR APTT Sodium 138 Potassium 3.8 Chloride 107 Carbon Dioxide 24 BUN 22 H Creatinine 1.26 H Estimated GFR 59.4 L BUN/Creatinine Ratio 17.5 Glucose 110 H Hemoglobin A1c Calcium 8.9 Magnesium 2.2 Total Bilirubin AST ALT Alkaline Phosphatase Total Creatine Kinase CK-MB (CK-2) CK-MB (CK-2) Rel Index Troponin I Total Protein Albumin Globulin Albumin/Globulin Ratio Triglycerides 125 Cholesterol 101 L LDL Cholesterol, Calc 47 HDL Cholesterol 29 L TSH U Opiates 300ng/mL cut Negative Ur Oxycodone Screen Negative Urine Methadone Screen Negative Ur Barbiturates Screen Negative U Tricyclic Antidepress Negative Ur Phencyclidine Scrn Negative Ur Amphetamines Screen Negative U Methamphetamines Scrn Negative Ur MDMA Scrn (Ecstasy) Negative U Benzodiazepines Scrn Negative Urine Cocaine Screen Negative U Marijuana (THC) Screen Negative SARS-CoV-2 (PCR) Negative 04/03/20 04/03/20 05:19 05:19 WBC RBC Hgb Hct MCV MCH MCHC RDW Plt Count Neut % (Auto) Lymph % (Auto) Kimble % (Auto) Eos % (Auto) Baso % (Auto) Neut # (Auto) Lymph # (Auto) Kimble # (Auto) Eos # (Auto) Baso # (Auto) PT INR APTT Sodium Potassium Chloride Carbon Dioxide BUN Creatinine Estimated GFR BUN/Creatinine Ratio Glucose Hemoglobin A1c 5.6 Calcium Magnesium Total Bilirubin AST ALT Alkaline Phosphatase Total Creatine Kinase CK-MB (CK-2) CK-MB (CK-2) Rel Index Troponin I Total Protein Albumin Globulin Albumin/Globulin Ratio Triglycerides Cholesterol LDL Cholesterol, Calc HDL Cholesterol TSH 5.21 H U Opiates 300ng/mL cut Ur Oxycodone Screen Urine Methadone Screen Ur Barbiturates Screen U Tricyclic Antidepress Ur Phencyclidine Scrn Ur Amphetamines Screen U Methamphetamines Scrn Ur MDMA Scrn (Ecstasy) U Benzodiazepines Scrn Urine Cocaine Screen U Marijuana (THC) Screen SARS-CoV-2 (PCR) [facility] Medical History Bilateral kidney stones Hyperlipidemia Hypertension Surgical History History of appendectomy History of lithotripsy History of surgery on arm Family History Father Cancer Stroke Sister Diabetes mellitus Mother Cardiovascular disease History of four vessel coronary artery bypass graft Social History household members: spouse Smoking Status: Never smoker alcohol intake: current Discharge Assessment & Plan Assessment and Plan Assessment: 54-year-old male with past medical history of hypertension hyperlipidemia is presenting to the hospital with 2 days of facial droop and is found to have findings consistent with Graves's palsy. Plan of Treatment: 1. Acute left facial droop, rule out CVA versus Graves's palsy, present on admission, active. CVA ruled out with CTA head and neck and MRI. He was initially on aspirin and Plavix was added. Due to lack of evidence of CVA on imaging Plavix was discontinued at discharge. He was started on 7 day course of prednisone and Valtrex for presumed moderate-severe Graves's palsy. He will follow up with PCP at discharge. Instructed to use eye lubricant and I covering at night to prevent eye irritation. 2. Essential hypertension, chronic, active Patient only reported prehypertension as an outpatient. He was started on losartan while inpatient which he can continue on discharge. PCP follow-up requested. Echo prior to discharge shows grossly normal cardiac function and mildly dilated aortic root. 3. Dilated aortic root He has a mildly dilated aorta and should have routine follow-up in next 1-2 years to monitor. Will defer this action to his PCP. 3. Hyperlipidemia, chronic, stable Continued on home dose statin. The patient is admitted to the hospital due to the severity of the symptoms and need for further monitoring and diagnostic evaluation. The patient is admitted as observation status with expected length of stay to be less than 2 midnights. Discharge Plan Discharge Plan Patient Disposition: Home Discharge orders & Medications Prescriptions: New aspirin 81 mg tablet,delayed release (DR/EC) 81 mg PO DAILY Qty: 30 RF: 1 prednisone 20 mg Tablet 60 mg PO DAILY 6 Days Qty: 6 RF: 0 losartan 25 mg Tablet 25 mg PO DAILY Qty: 30 RF: 0 valacyclovir 500 mg Tablet 1,000 mg PO TID Qty: 6 RF: 0 atorvastatin 20 mg tablet 20 mg PO DAILY Qty: 30 RF: 0 Continued acetaminophen 500 mg Tablet 1,000 mg PO Q6H PRN (Reason: Headache) RF: 0 ibuprofen 100 mg Tablet 200 mg PO Q6H PRN (Reason: Headache) RF: 0 Discontinued atorvastatin 20 mg Tablet 20 mg PO DAILY RF: 0 ibuprofen [Advil] 200 mg Tablet 400 mg PO Q6H PRN (Reason: Headache) RF: 0 aspirin 81 mg Tablet 81 mg PO DAILY RF: 0 Follow up/Referrals: Shahriar Kraft ARNP [Primary Care Provider] - Diet/Activity/Treatments Diet: Low-cholesterol Skin/Wound/Dressing Care Report to your healthcare provider any signs of infection, such as:: chills, fever, night sweats, increased pain, unusual drainage and unusual redness Discharge Data Primary Care Provider: Shahriar Kraft Attending Provider: Jeremy Merritt
--- NOTE | 2020-04-03 13:06 | PC.NURSE ---
Removed patient's IV for discharge. Catheter intact, patient tolerated.
--- NOTE | 2020-04-03 13:37 | OT.IP.EVAL ---
Past Medical History (Last Reviewed 04/03/20 @ 12:33 by Bienvenido Penny DO) Bilateral kidney stones Hyperlipidemia Hypertension Surgical History (Last Reviewed 04/03/20 @ 12:33 by Bienvenido Penny DO) History of appendectomy History of lithotripsy History of surgery on arm Occupational Therapy Inpatient Evaluation/Re-Eval . M1 PT/OT-IP Prior Functional Status Start: 04/03/20 13:08 Freq: NEEDED Status: Active Protocol: Document 04/03/20 11:07 [facility] (Rec: 04/03/20 13:36 [facility] [id number]) Medical Review Prior Functional Status Medical History Reviewed Yes Communication WNL. Pt is an effective verbal communicator. Mobility and Gait Pt is independently mobile without AD and without meaningful limit. Activities of Daily Living and IADL's Independent. 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 Social History Household Members spouse Living Arrangements House Number of Floors (Floors) Two Floors Number of Stairs To Enter/Railing? Split level home with 8 KATHIE/ wide bilateral rails. Once inside, pt climbs 7 steps to bedroom level with right rail ascending. 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 Pt reports high stress levels. M2 OT-IP Current Condition Start: 04/03/20 13:08 Freq: Status: Active Protocol: Document 04/03/20 11:07 [facility] (Rec: 04/03/20 13:36 [facility] [id number]) Occupational Therapy Current Condition Current Condition Evaluation Date 04/03/20 Treatment Diagnosis Acute facial droop, left eye and neck pain Diagnosis Onset Date 04/02/20 M3 OT- IP Subjective and Pain Start: 04/03/20 13:08 Freq: Status: Active Protocol: Document 04/03/20 11:07 [facility] (Rec: 04/03/20 13:36 [facility] [id number]) OT- Subjective Occupational Therapy Visit Type Type Initial Evaluation Visit Start Time 11:07 Visit Stop Time 11:55 Total Visit Minutes 48 Occupational Therapy Visit Comments Patient Comments Pt agreed to do OT eval. Pt's in the room. Patient/Caregiver Goals TO go home. OT Pain Assessment Pain When Pain Assessed At Rest Pain Present Pain Present Denied Pain M4 OT- IP ADL's Start: 04/03/20 13:08 Freq: Status: Active Protocol: Document 04/03/20 11:07 [facility] (Rec: 04/03/20 13:36 [facility] [id number]) OT ADL-Grooming General Evaluation Grooming Ability Standby Assistance Areas Needing Assistance Retrieving/Set-up of Grooming Items Comments OT Grooming Comments Noted pt hold his left arm forwards and slightly in internal rotation while brushing his teeth. When asked pt unaware and states usually puts his left hand on the counter when he brushes his teeth. OT ADL-Oral Care General Eval Oral Care Ability Independent OT ADL-Dressing General Eval Lower Body Dressing Ability Independent Comments OT Dressing Comments Pt able to independently klaus. doff his socks while seated. OT ADL-Toileting Comments OT Toileting Comments Pt did not have to use the toilet, states has been using the toilet on his own while in the room. OT ADL-Bathing Comments OT Bathing Comments NOt at this time. M5 OT- IP IADL's Start: 04/03/20 13:08 Freq: Status: Active Protocol: Document 04/03/20 11:07 [facility] (Rec: 04/03/20 13:36 [facility] [id number]) OT-Instrumental Activities of Daily Living Home Safety Awareness Home Safety Comments At this time due to pt's decreased vision, at times increased time for executive function, suggested his to assist and provide supervision at this time. Medication Management Medication Management Comments At this time due to pt's decreased vision, at times increased time for executive function, suggested his to assist and provide supervision at this time. Money Management Money Management Comments At this time due to pt's decreased vision, at times increased time for executive function, suggested his to assist and provide supervision at this time. Meal Preparation Meal Preparation Comments At this time due to pt's decreased vision, at times increased time for executive function, suggested his to assist and provide supervision at this time. Provisioning Analyst Provisioning Analyst Comments At this time due to pt's decreased vision, at times increased time for executive function, suggested his to assist and provide supervision at this time. Driving Driving Comments At this time, pt and agreed that pt will not drive. M6 OT- IP Functional Cognition Start: 04/03/20 13:08 Freq: Status: Active Protocol: Document 04/03/20 11:07 [facility] (Rec: 04/03/20 13:36 [facility] [id number]) Cognitive Factors Limiting Selfcare Function Cognitive Ability Level of Alertness Alert Patient Orientation Name,Age,Birthday,Month,Date, Year,Day of Week,Place, Situation Attention Span Ability Capable of Focused Attention, Capable of Sustained Attention Ability to Follow Commands Able to Follow One Step Commands Memory Description Short Term Impaired Executive Function Ability Unable to Remember Details Cognitive Tests SLUMS Pt scored 27/30 which is normal for pt's level of education and able to recall 4 /5 objects after time passes and able to answer 3/4 questions right after paragraph read. Pt needing increased to answer questions and at times having word finding issues. Cognitive Comments Cognitive Assessment Comments Pt scored 74 seconds plus one cue on [place] making Part B which implies mild impairments for speed of processing, mental flexibility, visual attention, executive functioning, and task switching. Pt states that his left eye is blurry and compensating by using his right eye and needing to turn his head to the left. Pt also needing one cue for correction on the assessment. OT- Vision and Hearing OT- Vision Assessment Vision Assessment Comments Pt states wears glasses due to being near sighted. Pt's left eye set slightly to the right and upwards. Both eyes tends to have involuntary movement during scanning left eye greater than the right. M7 OT- IP Mobility and Balance Start: 04/03/20 13:08 Freq: Status: Active Protocol: Document 04/03/20 11:07 [facility] (Rec: 04/03/20 13:36 [facility] [id number]) OT- Bed Mobility Assessment Supine to Sit Supine to Sit Assist Independent Sit to Supine Sit to Supine Assist Independent Scooting Scooting to Edge of Bed Independent Scooting Up and Down in Bed Independent OT-Transfer Assessment Sit to and From Stand Sit to and from Stand Independent Transfers Transfer Ability Independent Technique Transfer Destination Bed Comments Mobility Comments Pt independent for mobility in the room without a device for level surfaces. OT- Balance Assessment Sitting Balance and Reactions Static Sitting Balance Ability Normal Dynamic Sitting Balance Ability Normal Standing Balance and Reactions Static Standing Balance Ability Good M8 OT- IP Objective Assessments Start: 04/03/20 13:08 Freq: Status: Active Protocol: Document 04/03/20 11:07 [facility] (Rec: 04/03/20 13:36 [facility] [id number]) OT Gross Range of Motion Upper Extremity Range of Motion Assessment Within Functional Limits OT Strength Upper Extremity Strength Assessment Bilaterally Impaired Comments Strength Comments Pt right UE hx of sx and 4/5 throughout. LUE 5/5 to 4/5 form proximal to distal. OT- Coordination Assessment Upper Extremity Finger to Nose Test Within Functional Limits Comments Coordination Comments R hand 9 hole peg 20 sec. L hand 9 hole peg 22 sec. Pt able to independently clasp and unclasp his necklace. OT-Muscle Tone Assessment Muscle Tone WNL Yes OT Sensation Assessment Comments Summary Comments Intact for light touch however pt states his left arm feels off. Decreased proprioception for left hand and wrist. M9 OT- IP Assessment and Plan Start: 04/03/20 13:08 Freq: Status: Active Protocol: Document 04/03/20 11:07 [facility] (Rec: 04/03/20 13:36 [facility] [id number]) OT Summary Assessment and Plan Potential Rehabilitation Potential Good Analytic Complexity at Evaluation Moderate Summary OT Impairments Strength,Functional Cognition, Functional Mobility,Bathing, Activity Tolerance Progress Towards Goals Progressing Toward Goals Assessment Summary Pt mod complexity and main barriers are decreased vision, word finding and decreased for executive functions, and at times needing extra time to process information. Pt has a supportive that will assist him at home and would also benefit from going to see possibly a neuro preventive medicine specialist and outpt therapy to work on his high level cognitive functioning needs. Goals Toilet Transfer Goal Independent OT-Other Goals Pt to be able visual strategies to increased safety for Adl and functional mobility needs. Days to Meet Goals 1 Frequency of Treatment Frequency Of Treatment Once a Day Treatment Plan OT Treatment Plan Functional Cognition Training, Functional Mobility,Vision Retraining,Patient/Family Education,Discharge Planning Discharge Recommendations OT Discharge Recommendations Home with Assistance, Outpatient PT Transportation Needs at Discharge Private Vehicle
--- NOTE | 2020-04-03 13:50 | PC.NURSE ---
Patient educated about discharge instructions for diet, exercise, new medications and given hand outs for new medications. Patient educated about ss of stroke and told when to follow up with primary care provider. Patient verbalized understanding of all discharge instructions. Patient left facility with all belongings and prescriptions were electronically sent to his pharmacy. Patient left facility via wheelchair to private vehicle.
== END 2020-04-03 13:50 | disposition home or self-care (01) ==
LOC: ED 18:32 → AC 19:49
PROVIDERS: Admitting Provider Nurse Practitioner Adult Health; Emergency Provider Emergency Medicine; Family Provider Registered Nurse Diabetes Educator; PCP Registered Nurse Diabetes Educator; Referring Provider Emergency Medicine; Visit Provider Nurse Practitioner Adult Health
DX: R29.810 Facial weakness (principal); I77.819 Aortic ectasia, unspecified site; H53.8 Other visual disturbances; M54.2 Cervicalgia; R26.2 Difficulty in walking, not elsewhere classified; E78.5 Hyperlipidemia, unspecified; I10 Essential (primary) hypertension; Z20.822 Contact with and (suspected) exposure to COVID-19
CPT/HCPCS: 36415; 70450; 70496; 70498; 70548; 70553; 80048; 80053; 80061; 80305; 82550; 82553; 82962; 83036; 83735; 84443; 84484; 85025; 85610; 85730; 87635; 92523; 92610; 93005; 93306; 96360; 96372; 97162; 97166; 97530; 99284; C9803; G0378; J1650

== ENCOUNTER 2023-05-20 12:33 | Emergency (ER) | payer OTHER, SELFPAY ==
[2020-04-02 20:34] VITALS: BMI 28.3
[2023-05-20 12:47] VITALS: BP 169/95; PULSE 60; RESP 18; TEMP 36.1; BMI 28.2
[2023-05-20 13:45] LABS: Bacteria Urine None Seen; RBC Urine 0-1/HPF (0-5/HPF); Squamous Epithelial Cell Urine None Seen (0-5/HPF); Urine Volume 10mL (spun); WBC Urine None Seen (0-5/HPF)
--- NOTE | 2023-05-20 16:21 | DI.CT.S_ITS ---
PROCEDURE: CT ABDOMEN PELVIS W CON INDICATIONS: flank pain, hx of kidney stones TECHNIQUE: After the administration of intravenous contrast, axial sections acquired from the lung bases to the pubic symphysis. Coronal and sagittal reformats were performed. For radiation dose reduction, the following was used: automated exposure control, adjustment of mA and/or kV according to patient size. COMPARISON: [facility], CT, KIDNEY/ URETER/BLADDER, 02/25/2017, 17:23. FINDINGS: Image quality: Diagnostic. Lower Chest: No significant findings. ABDOMEN: Liver: 1.9 cm enhancing superior right hepatic lobe mass on series 2, image 17. Diffuse appearance of steatosis is present.. Gallbladder: No radiopaque gallstones or wall thickening. Biliary ducts: No biliary dilation. Pancreas: No ductal dilation. Spleen: Size is within normal limits. Adrenal Glands: No adrenal nodules. Kidneys and Ureters: No hydronephrosis. No solid mass. No complex renal cystic lesion which requires follow up. Punctate nonobstructing right renal calcification. 2 non-obstructing left renal calcifications the largest measuring 4 mm. Stomach and Bowel: Normal colonic caliber, without significant wall thickening. Appendix is normal. Colonic diverticular present without inflammatory change. Peritoneum: No abnormal intraperitoneal fluid. No free air. Ventral Wall: No significant ventral hernia. Abdominal Nodes: No retroperitoneal or mesenteric adenopathy by size criteria. Vessels: Aorta and inferior vena cava are normal in size. PELVIS: Pelvic Organs: Unremarkable. Bladder: No bladder wall thickening, accounting for underdistention. Pelvic Nodes: No enlarged lymph nodes. Miscellaneous: No inguinal hernias are seen. Bones: No aggressive osseous abnormality. Compression deformity is present at L1, unchanged since 2018 IMPRESSION: Nonobstructing bilateral renal calculi. Diverticulosis. 1.9 cm enhancing right hepatic lobe mass. No priors are available for comparison. While this could represent hemangioma, other etiologies cannot be excluded. Further evaluation on a nonemergent basis with MRI with hepatic protocol or targeted ultrasound is recommended. Dictated by: Oma Child M.D. on 05/20/2023 at 17:07 Approved by: Oma Child M.D. on 05/20/2023 at 17:10
--- NOTE | 2023-05-20 16:21 | ED_ITS ---
HPI - Male Genitourinary <Ben Escalona PA-C - Last Filed: 05/20/23 18:19> General Chief complaint: Urogenital-Male Stated complaint: Pain in both sides Time Seen by Provider: 05/20/23 15:35 Source: patient Mode of arrival: Ambulatory History of Present Illness HPI Narrative: 58-year-old male with past medical history urolithiasis, hypertension, CVA presents to the ED with 2 days of bilateral flank pain. Patient denies fever, chills, nausea, vomiting, chest pain, shortness of breath, dysuria, diarrhea, constipation, hematochezia, melena, lightheadedness, dizziness, syncope. Patient does endorse foul-smelling urine. Patient endorses generalized abdominal pain which is intermittent. Patient endorses history of urolithiasis, last kidney stone was around 2014. Patient did have lithotripsy performed once for kidney stones. No prior abdominal surgeries. Related Data Home Medications Medication Instructions Recorded Confirmed acetaminophen 500 mg tablet 1,000 mg PO Q6H PRN Headache 04/02/20 04/02/20 ibuprofen 100 mg tablet 200 mg PO Q6H PRN Headache 04/02/20 04/02/20 Previous Rx's Medication Instructions Recorded aspirin 81 mg tablet,delayed 81 mg PO DAILY #30 tabs 04/03/20 release atorvastatin 20 mg tablet 20 mg PO DAILY #30 tabs 04/03/20 losartan 25 mg tablet 25 mg PO DAILY #30 tabs 04/03/20 valacyclovir 500 mg tablet 1,000 mg (2 x 500 mg) PO TID #6 04/03/20 tabs tamsulosin 0.4 mg capsule (Flomax) 0.4 mg PO BEDTIME #30 caps 05/20/23 Allergies Allergy/AdvReac Type Severity Reaction Status Date / Time egg [EGG] Allergy Unknown Anaphylaxis Verified 04/02/20 22:33 feathers [FEATHERS] Allergy Unknown Difficulty Verified 04/02/20 22:33 Breathing Influenza Virus Vaccines Allergy Unknown Anaphylaxis Verified 04/02/20 22:33 [INFLUENZA VIRUS VACCINES] Review of Systems <Ben Escalona PA-C - Last Filed: 05/20/23 18:19> Constitutional Constitutional: Denies chills, Denies fatigue, Denies fever(s), Denies frequent falls, Denies lethargy and Denies weakness Eyes Eyes: Denies change in vision, Denies eye discharge, Denies irritation and Denies loss of vision ENT Ears, Nose, Mouth, and Throat: Denies change in voice, Denies dizziness, Denies neck pain, Denies sore throat and Denies throat swelling Cardiovascular Cardiovascular: Denies chest pain, Denies irregular heart rhythm, Denies lightheadedness, Denies palpitations, Denies dyspnea, Denies dyspnea on exertion and Denies orthopnea Respiratory Respiratory: Denies cough, Denies dyspnea, Denies dyspnea on exertion and Denies wheezing Gastrointestinal Gastrointestinal: Reports abdominal pain, Denies change in bowel habits, Denies diarrhea, Denies nausea and Denies vomiting Genitourinary Genitourinary: Denies dysuria Comments: Foul-smelling urine, bilateral flank pain Musculoskeletal Musculoskeletal: Denies neck pain and Denies numbness Integumentary/Breasts Skin/Breast: Denies pruritus, Denies erythema, Denies rash and Denies wounds Neurologic Neurologic: Denies behavioral changes, Denies confusion, Denies dizziness, Denies frequent falls, Denies loss of vision, Denies numbness and Denies weakness Psychiatric Psychiatric: Denies anxiety, Denies behavioral changes, Denies confusion, Denies depression, Denies homicidal ideation and Denies suicidal ideation Endocrine Endocrine: Denies fatigue, Denies flushing and Denies palpitations Hematologic/Lymphatic Hematologic/Lymphatic: Denies easy bruising Allergic/Immunologic Allergic/Immunologic: Denies urticaria, Denies throat swelling and Denies wheezing Patient History <Ben Escalona PA-C - Last Filed: 05/20/23 18:19> Medical History Hyperlipidemia Hypertension Bilateral kidney stones Surgical History History of surgery on arm History of appendectomy History of lithotripsy Family History Father Cancer Stroke Sister Diabetes mellitus Mother Cardiovascular disease History of four vessel coronary artery bypass graft Social History household members: spouse Smoking Status: Never smoker alcohol intake: current Smoking Status: Never smoker alcohol intake frequency: holidays/special occasions only Substance Use Type: does not use Exam <Ben Escalona PA-C - Last Filed: 05/20/23 18:19> Narrative Exam Narrative: Const General:?cooperative, healthy appearing and comfortable [facility] Head:?normal to inspection Ears:?hearing grossly normal bilaterally Nose:?external nose normal Face and sinus:?normal facial exam and sinuses nontender Mouth:?oral mucosae normal Throat:?posterior oropharynx normal Eyes General:?appearance normal, both eyes and all related structures Neck Neck:?normal visual inspection and no lymphadenopathy noted Resp Effort & Inspection:?normal respiratory effort Auscultation:?clear to auscultation bilaterally Cardio Rate:?regular rate Rhythm:?regular rhythm GI Abdomen is soft, nondistended, diffusely tender to palpation. There is marked CVA tenderness, right greater than left. Neuro General:?patient alert, patient awake and patient oriented x3 Initial Vital Signs Initial Vital Signs: Vital Signs Temperature 96.9 F L 05/20/23 12:47 Pulse Rate 60 05/20/23 12:47 Respiratory Rate 18 05/20/23 12:47 Blood Pressure 169/95 H 05/20/23 12:47 <Wilson Alamo MD - Last Filed: 05/27/23 09:27> Initial Vital Signs Initial Vital Signs: Vital Signs Temperature 96.9 F L 05/20/23 12:47 Pulse Rate 60 05/20/23 12:47 Respiratory Rate 18 05/20/23 12:47 Blood Pressure 169/95 H 05/20/23 12:47 Course <Ben Escalona PA-C - Last Filed: 05/20/23 18:19> Orders Ordered: Discontinued Medications Ketorolac Tromethamine (Ketorolac 30 Mg/Ml Vial) 15 mg IV NOW ONE Stop: 05/20/23 16:23 Last Admin: 05/20/23 16:38 Dose: 15 mg Documented By: HESHAM Ondansetron HCl (Ondansetron 4 Mg Odt) 4 mg SL NOW PRN PRN Reason: Nausea And Vomiting Ondansetron HCl (Ondansetron 4 Mg/2 Ml Inj) 4 mg IV NOW PRN PRN Reason: Nausea And Vomiting Vital Signs Vital signs: Vital Signs - 8 hr 05/20/23 12:47 Temperature 96.9 F L Pulse Rate 60 Respiratory Rate 18 Blood Pressure 169/95 H <Wilson Alamo MD - Last Filed: 05/27/23 09:27> Orders Ordered: Discontinued Medications Ketorolac Tromethamine (Ketorolac 30 Mg/Ml Vial) 15 mg IV NOW ONE Stop: 05/20/23 16:23 Last Admin: 05/20/23 16:38 Dose: 15 mg Documented By: HESHAM Ondansetron HCl (Ondansetron 4 Mg Odt) 4 mg SL NOW PRN PRN Reason: Nausea And Vomiting Ondansetron HCl (Ondansetron 4 Mg/2 Ml Inj) 4 mg IV NOW PRN PRN Reason: Nausea And Vomiting Vital Signs Vital signs: Vital Signs - 8 hr 05/20/23 12:47 Temperature 96.9 F L Pulse Rate 60 Respiratory Rate 18 Blood Pressure 169/95 H MDM - Male Genitourinary <Ben Escalona PA-C - Last Filed: 05/20/23 18:19> Lab Data 05/20/23 16:36 05/20/23 16:36 Labs: Lab Results 05/20/23 05/20/23 Range/Units 12:59 16:36 WBC 6.9 (4.5-11.0) X10^3/uL RBC 4.90 (4.5-5.9) X10^6/uL Hgb 15.2 (13.5-17.5) g/dL Hct 44.5 (41-53) % MCV 90.7 (80-100) fL MCH 30.9 (26-34) PG MCHC 34.1 (30-36) % RDW 13.7 (11.6-14.8) % Plt Count 147 L (150-400) X10^3/uL Neut % (Auto) 50.2 (50-75) % Lymph % (Auto) 34.2 (25-40) % [place] % (Auto) 8.7 (3-14) % Eos % (Auto) 6.1 H (2-4) % Baso % (Auto) 0.8 (0-2) % Neut # (Auto) 3500 (3105-4297) /uL Lymph # (Auto) 2400 (5378-2499) /uL [place] # (Auto) 600 (0-900) /uL Eos # (Auto) 400 (0-450) /uL Baso # (Auto) 100 (0-100) /uL PT 13.1 H (9.4-12.5) SECONDS INR 1.1 (0.9-1.3) APTT 33 (25.1-36.5) SECONDS Sodium 141 (137-145) mmol/L Potassium 4.7 (3.4-5.1) mmol/L Chloride 110 H (98-107) mmol/L Carbon Dioxide 27 (22-32) mmol/L BUN 17 (9-20) mg/dL Creatinine 0.95 (0.66-1.25) mg/dL Estimated GFR > 60 (>60) mL/min BUN/Creatinine Ratio 17.9 (6-22) Glucose 112 H (70-100) mg/dL Calcium 8.9 (8.4-10.2) mg/dL Total Bilirubin 1.4 H (0.2-1.3) mg/dL AST 49 (17-59) IU/L ALT 5 (<50) IU/L Alkaline Phosphatase 64 (38-126) U/L Total Protein 7.3 (6.3-8.2) g/dL Albumin 4.0 (3.5-5.0) g/dL Globulin 3.3 (1.7-4.1) g/dL Albumin/Globulin Ratio 1.2 (1.0-2.8) Lipase 78 (23-300) U/L Urine RBC 0-1/hpf (0-5/HPF) Urine WBC None seen (0-5/HPF) Ur Squamous Epith Cells None seen (0-5/HPF) Urine Bacteria None seen (None) Vol Urine Centrifuged 10ml (spun) Urine Dip Bedside Urine Glucose Negative Bedside Urine Bilirubin - Negative Bedside Urine Ketone - Negative Urine Specific [place] 1.025 Bedside Urine Occult Blood + Bedside Urine pH 6.0 Bedside Urine Protein - Negative Bedside Urine Urobilinogen - Negative Bedside Urine Nitrite - Negative Bedside Urine Leukocytes - Negative Esterase MDM Narrative Medical decision making narrative: 58-year-old male with past medical history urolithiasis, hypertension, CVA presents to the ED with 2 days of bilateral flank pain. Concern for urolithiasis versus UTI versus pyelonephritis versus other intra-abdominal pathology versus other. Will obtain labs, UA, CT abdomen pelvis. Will give ketorolac for pain. Will reassess. Labs within normal limits. UA without UTI. CT abdomen pelvis shows nonobstructing right-sided renal calculi, the largest measuring 4 mm. Incidental finding of 1.9 cm enhancing right hepatic lobe mass. While this could be a hemangioma, other etiologies can not be excluded. Patient's symptoms resolved with ketorolac. Discussed findings with patient. Recommend tamsulosin, ibuprofen. Recommend follow-up with Urology as soon as possible. Recommend follow-up with his PCP for the incidental finding of the hepatic mass. ED return precautions were discussed with patient. Patient verbalized understanding. Medical records reviewed: Yes <Wilson Alamo MD - Last Filed: 05/27/23 09:27> Lab Data Labs: Lab Results 05/20/23 05/20/23 Range/Units 12:59 16:36 WBC 6.9 (4.5-11.0) X10^3/uL RBC 4.90 (4.5-5.9) X10^6/uL Hgb 15.2 (13.5-17.5) g/dL Hct 44.5 (41-53) % MCV 90.7 (80-100) fL MCH 30.9 (26-34) PG MCHC 34.1 (30-36) % RDW 13.7 (11.6-14.8) % Plt Count 147 L (150-400) X10^3/uL Neut % (Auto) 50.2 (50-75) % Lymph % (Auto) 34.2 (25-40) % [place] % (Auto) 8.7 (3-14) % Eos % (Auto) 6.1 H (2-4) % Baso % (Auto) 0.8 (0-2) % Neut # (Auto) 3500 (3631-5362) /uL Lymph # (Auto) 2400 (1764-5480) /uL [place] # (Auto) 600 (0-900) /uL Eos # (Auto) 400 (0-450) /uL Baso # (Auto) 100 (0-100) /uL PT 13.1 H (9.4-12.5) SECONDS INR 1.1 (0.9-1.3) APTT 33 (25.1-36.5) SECONDS Sodium 141 (137-145) mmol/L Potassium 4.7 (3.4-5.1) mmol/L Chloride 110 H (98-107) mmol/L Carbon Dioxide 27 (22-32) mmol/L BUN 17 (9-20) mg/dL Creatinine 0.95 (0.66-1.25) mg/dL Estimated GFR > 60 (>60) mL/min BUN/Creatinine Ratio 17.9 (6-22) Glucose 112 H (70-100) mg/dL Calcium 8.9 (8.4-10.2) mg/dL Total Bilirubin 1.4 H (0.2-1.3) mg/dL AST 49 (17-59) IU/L ALT 5 (<50) IU/L Alkaline Phosphatase 64 (38-126) U/L Total Protein 7.3 (6.3-8.2) g/dL Albumin 4.0 (3.5-5.0) g/dL Globulin 3.3 (1.7-4.1) g/dL Albumin/Globulin Ratio 1.2 (1.0-2.8) Lipase 78 (23-300) U/L Urine RBC 0-1/hpf (0-5/HPF) Urine WBC None seen (0-5/HPF) Ur Squamous Epith Cells None seen (0-5/HPF) Urine Bacteria None seen (None) Vol Urine Centrifuged 10ml (spun) Urine Dip Bedside Urine Glucose Negative Bedside Urine Bilirubin - Negative Bedside Urine Ketone - Negative Urine Specific [place] 1.025 Bedside Urine Occult Blood + Bedside Urine pH 6.0 Bedside Urine Protein - Negative Bedside Urine Urobilinogen - Negative Bedside Urine Nitrite - Negative Bedside Urine Leukocytes - Negative Esterase Discharge Plan Departure Patient Disposition: Home Clinical Impression: Kidney stone Instructions: DI for Kidney Stones Activity Restrictions/Additional Instructions: You were evaluated in the ED today for flank pain. Your labs were normal. Your urine does not have an infection. Your CT scan did show 2 4 mm stones on the left kidney which are nonobstructing. You are being prescribed tamsulosin take nightly that can ease stone passage. You may take 800 mg of ibuprofen every 8 hours for pain relief. Please follow-up with Urology as soon as possible. You may call [facility] at [phone]. Return to the ED if you have worsening pain, fever, chills, persistent vomiting. Prescriptions: New tamsulosin [Flomax] 0.4 mg capsule 0.4 mg PO BEDTIME Qty: 30 0RF No Action acetaminophen 500 mg Tablet 1,000 mg PO Q6H PRN (Reason: Headache) Rx Instructions: Take Tylenol, Advil or Motrin for headache depending on which is available at home. ibuprofen 100 mg Tablet 200 mg PO Q6H PRN (Reason: Headache) Rx Instructions: Take Tylenol, Advil or Motrin for headache depending on which is available at home. aspirin 81 mg tablet,delayed release (DR/EC) 81 mg PO DAILY Qty: 30 1RF losartan 25 mg Tablet 25 mg PO DAILY Qty: 30 0RF valacyclovir 500 mg Tablet 1,000 mg PO TID Qty: 6 0RF Rx Instructions: Start on 04/04/20 atorvastatin 20 mg tablet 20 mg PO DAILY Qty: 30 0RF Referrals: Shahriar Kraft ARNP [Primary Care Provider] - Stand Alone Forms: Patient Portal/API ED Sign-out <Wilson Alamo MD - Last Filed: 05/27/23 09:27> Cosign ED Attending Cosignature Attestation: I was immediately available in the department for consultation. ?This documentation has been reviewed and I agree with assessment and plan. Supervised by Wilson Alamo MD
[2023-05-20] MEDS: KETOROLAC 30 MG/ML VIAL 15 MG IV (16:38)
[2023-05-20 16:49] LABS: Add Manual Diff / Slide Review NO; Basophils Absolute Auto 100 /uL (0-100); Basophils Percent Auto 0.8 % (0-2); Eosinophils Absolute Auto 400 /uL (0-450); Eosinophils Percent Auto 6.1 % (2-4); Hematocrit 44.5 % (41-53); Hemoglobin 15.2 g/dL (13.5-17.5); Lymphocytes Absolute Auto 2400 /uL (1100-4500); Lymphocytes Percent Auto 34.2 % (25-40); Mean Corpuscular HGB Conc 34.1 % (30-36); Mean Corpuscular Hemoglobin 30.9 PG (26-34); Mean Corpuscular Volume 90.7 fL (80-100); Monocytes Absolute Auto 600 /uL (0-900); Monocytes Percent Auto 8.7 % (3-14); Neutrophils Absolute Auto 3500 /uL (1500-7000); Neutrophils Percent Auto 50.2 % (50-75); Platelet Count 147 X10^3/uL (150-400); Red Cell Distribution Width 13.7 % (11.6-14.8); White Blood Cell Count 6.9 X10^3/uL (4.5-11.0)
[2023-05-20 17:08] LABS: INR 1.1 (0.9-1.3); Prothrombin Time 13.1 SECONDS (9.4-12.5)
[2023-05-20 17:10] LABS: PTT Partial Thromboplastin Tim 33 SECONDS (25.1-36.5)
[2023-05-20 17:18] LABS: Alanine Aminotransferase 5 IU/L (<50); Albumin Globulin Ratio 1.2 (1.0-2.8); Alkaline Phosphatase 64 U/L (38-126); Aspartate Aminotransferase 49 IU/L (17-59); BUN Creatinine Ratio 17.9 (6-22); Bilirubin Total 1.4 mg/dL (0.2-1.3); Blood Urea Nitrogen 17 mg/dL (9-20); Calcium 8.9 mg/dL (8.4-10.2); Carbon Dioxide 27 mmol/L (22-32); Chloride 110 mmol/L (98-107); Estimated Glomerular Filt Rate > 60 mL/min (>60); Globulin 3.3 g/dL (1.7-4.1); Glucose 112 mg/dL (70-100); Lipase 78 U/L (23-300); Potassium 4.7 mmol/L (3.4-5.1); Sodium 141 mmol/L (137-145); Total Protein 7.3 g/dL (6.3-8.2)
[2023-05-20 17:46] LABS: HEMOLYSIS 106 (0-50)
[2023-05-20 18:54] VITALS: BP 166/88; PULSE 56; RESP 18; O2SAT 97
== END 2023-05-20 18:57 | disposition home or self-care (01) ==
PROVIDERS: Emergency Medicine; Emergency Provider Student in an Organized Health Care Education/Training Program; Family Provider Registered Nurse Diabetes Educator; PCP Registered Nurse Diabetes Educator
DX: N20.0 Calculus of kidney (principal)
CPT/HCPCS: 36415; 74177; 80053; 81003; 81015; 83690; 85025; 85610; 85730; 96374; 99284; J1885; Q9967